=== PATIENT | female | born 1960 | race Caucasian/White ===

== ENCOUNTER 2016-07-19 01:02 | Inpatient (IN) | payer MEDICARE, OTHER ==
[~2016-07-19] VITALS: Ht 167.6 cm; Wt 74.1 kg
[2016-07-19] VITALS (974 sets, daily range): BP systolic 137–183; BP diastolic 74–114; PULSE 64–94; TEMP 97.3–99; O2SAT 78–100
[~2016-07-19 01:02] MED LIST: ACIPHEX; ALLEGRA-D 12 HO1 TER PO; AMLODIPINE5 MG PO; ASPIR-LOW81 MG PO; ASPIRIN 32325 MG/TAB PO; ASPIRIN E.C. 8181 MG PO; ATENOLOL50 MG PO; AZITHROMYCIN250 MG PO; CARDIZEM CD 24240 MG PO; CLARITIN10 MG PO; DILTIAZEM240 M1 PO; DIOVAN; ELITE MAGNESIUM1 TAB PO; FEXOFENADINE180 MG PO; FISH OIL CONC1000 MG PO; FISH OIL1 IU PO; FLONASE NASAL S16 GM NS; FLONASE0.05 MG/AC NS; GLUCOSAMINE; GUAIFEN-PSE 6001 TER PO; HCTZ 25MG25 MG PO; LEVAQUIN 250MG250 MG PO; LIDOCAINE VISC100 M1 TP; LISINOPRIL5 MG PO; LORTAB 5/500 501 TAB; MEDI-FIRST ASP325 MG PO; MOTRIN 600600 MG/TAB PO; MOTRIN800 MG PO; MUCINEX 60600 MG/TA1 PO; MUCINEX 60600 MG/TAB PO; MULTAQ400 MG PO; MULTIPLE VITAMI1 TAB PO; MVI; MVI PO; NORCO 325 MG-51 TAB PO; OMEPRAZOLE DR20 MG PO; PAXIL PO; PHENERGAN 25 TA25 MG PO; PRADAXA 150MG150 MG PO; PREDNISONE20 MG PO; PREMARIN0.3 MG PO; PRILOSEC 20MG20 MG PO; SINGULAIR; TAMBOCOR150 MG PO; TYLENOL 325MG325 MG PO; VICODIN PO; VITAMIN; VITAMIN D1000 IU PO; VOLTAREN 75 DR75 MG PO; XYZAL; ZESTRIL 5MG5 MG PO; ZOFRAN8 MG PO; [UNRECOGNIZED DRUG - OTHER]; glucosamine
[2016-07-19 01:18] LABS: BASO % 0.8 % (0.0-2.0); EOS # 0.2 (0.0-0.7); EOS % 2.9 % (0-4.0); GRAN # 1.8 (1.4-6.5); HEMATOCRIT 37.2 % (37.0-47.0); HEMOGLOBIN 12.8 g/dl (12.5-16.0); LYMPH # 2.6 (1.2-3.4); LYMPH % 49.9 % (20.0-51.0); MEAN CELL VOLUME 97 fl (80.0-100.0); MEAN CORPUSCULAR HEMOGLOBIN 33 pg (27.0-31.0); MEAN CORPUSCULAR HGB CONC 34 g/dl (33.0-37.0); MEAN PLATELET VOLUME 10.2 fl (7.4-10.4); MONO # 0.6 (0.1-0.6); MONO % 10.8 % (1.7-9.3); PLATELET COUNT 165 K/mm3 (130-400); RED BLOOD COUNT 3.83 M/mm3 (4.10-5.30); REDCELL DISTRIBUTION WIDTH-CV 14.3 % (11.5-14.5); WHITE BLOOD COUNT 5.2 K/mm3 (4.8-10.8)
[2016-07-19 01:29] LABS: ADJUSTED CALCIUM 8.7 mg/dL (8.4-10.2); ALANINE AMINOTRANSFERASE 89 U/L (9-52); ALBUMIN 3.7 gm/dL (3.5-5.0); ALKALINE PHOSPHATASE 106 U/L (50-136); ANION GAP 16 mmol/L (7-16); BILIRUBIN,TOTAL 0.5 mg/dL (0.0-1.0); BLOOD UREA NITROGEN 11 mg/dL (7-17); CALCIUM 8.5 mg/dL (8.4-10.2); CARBON DIOXIDE 24 mmol/L (22-30); CHLORIDE 107 mmol/L (98-107); CREATININE, serum 0.56 mg/dL (0.52-1.25); GLUCOSE 87 mg/dL (74-106); POTASSIUM 3.6 mmol/L (3.4-5.0); SODIUM 148 mmol/L (137-145); TOTAL PROTEIN 6.2 gm/dL (6.4-8.2)
[2016-07-19 01:30] LABS: ACETAMINOPHEN < 10 ug/mL (10-30); SALICYLATE < 1.0 mg/dL
[2016-07-19 02:57] LABS: PH 5 (5-8); URINE APPEARANCE Clear; URINE BILIRUBIN Negative (NEGATIVE); URINE BLOOD Negative (NEGATIVE); URINE COLOR Yellow; URINE GLUCOSE Negative (NEGATIVE); URINE KETONE Negative (NEGATIVE); URINE UROBILINOGEN Negative (NEGATIVE)
[2016-07-19 03:01] LABS: URINE RBC None Seen /hpf; URINE WBC None Seen /hpf
[2016-07-19 03:02] LABS: SQUAMOUS EPITHELIAL 0-2 /hpf
[2016-07-19 03:04] LABS: AMPHETAMINE URINE NEGATIVE; BARBITURATES URINE NEGATIVE; BENZODIAZEPINES URINE NEGATIVE; BUPRENORPHINE URINE NEGATIVE; METHADONE URINE NEGATIVE; OPIATES URINE NEGATIVE; OXYCODONE URINE NEGATIVE; PHENCYCLIDINE URINE NEGATIVE; PROPOXYPHENE URINE NEGATIVE; THC CANNABINOIDS URINE NEGATIVE
[2016-07-19] MEDS ORDERED: NORCO 325 MG-51 TAB PO (11:08)
[2016-07-20] VITALS (635 sets, daily range): BP systolic 142–172; BP diastolic 80–101; PULSE 69–101; TEMP 97.2–98.7; O2SAT 83–100
[2016-07-21] VITALS (8 sets, daily range): BP systolic 138–179; BP diastolic 84–102; PULSE 66–89; TEMP 97.7–98.6
[2016-07-21 07:59] LABS: CALCIUM 7.9 mg/dL (8.4-10.2); CREATININE, serum 0.54 mg/dL (0.52-1.25); POTASSIUM 3.2 mmol/L (3.4-5.0)
[2016-07-21 08:18] LABS: MAGNESIUM 0.7 mg/dL (1.6-2.3)
[2016-07-22] VITALS (7 sets, daily range): BP systolic 134–178; BP diastolic 78–100; PULSE 66–95; TEMP 97.3–99.1
[2016-07-22 07:18] LABS: BASO % 0.7 % (0.0-2.0); EOS # 0.2 (0.0-0.7); EOS % 2.7 % (0-4.0); GRAN # 3.1 (1.4-6.5); GRAN % 52.7 % (42.2-75.2); LYMPH # 1.6 (1.2-3.4); LYMPH % 27.5 % (20.0-51.0); MEAN CELL VOLUME 96 fl (80.0-100.0); MEAN CORPUSCULAR HEMOGLOBIN 34 pg (27.0-31.0); MEAN CORPUSCULAR HGB CONC 35 g/dl (33.0-37.0); MEAN PLATELET VOLUME 10.6 fl (7.4-10.4); MONO # 0.9 (0.1-0.6); MONO % 15.7 % (1.7-9.3); PLATELET COUNT 221 K/mm3 (130-400); RED BLOOD COUNT 4.15 M/mm3 (4.10-5.30); REDCELL DISTRIBUTION WIDTH-CV 13.7 % (11.5-14.5); WHITE BLOOD COUNT 5.9 K/mm3 (4.8-10.8)
[2016-07-22 07:24] LABS: CREATININE, serum 0.54 mg/dL (0.52-1.25); MAGNESIUM 1.2 mg/dL (1.6-2.3); POTASSIUM 3.8 mmol/L (3.4-5.0)
[2016-07-22] MEDS ORDERED: MAG-OX 400400 MG/TAB PO (11:35)
[2016-07-22] MEDS ORDERED: PRINIVIL20 MG PO (11:35)
== END 2016-07-22 17:36 | DRG 897 ==
LOC: COL.ER 01:02 → ICU 03:13 → MEDICAL 07-20 16:20
PROVIDERS: Emergency Medicine; Family Medicine; Internal Medicine
DX: F10.229 Alcohol dependence with intoxication, unspecified (principal); F10.24 Alcohol dependence with alcohol-induced mood disorder; S31.115A Laceration without foreign body of abdominal wall, periumbilic region without penetration into peritoneal cavity, initial encounter; X78.1XXA Intentional self-harm by knife, initial encounter; Y90.8 Blood alcohol level of 240 mg/100 ml or more; I10 Essential (primary) hypertension; I48.0 Paroxysmal atrial fibrillation; F17.210 Nicotine dependence, cigarettes, uncomplicated; E87.6 Hypokalemia; E83.42 Hypomagnesemia
CPT/HCPCS: 90791-AI; 99223-AI; 99232-AI; 99233-AI; 99239; C9113; J0360; J1650; J2060; J2405; J2765; J3411; J3475; J7030; J7120

== ENCOUNTER 2017-05-03 10:52 | Inpatient (IN) | payer MEDICARE ==
[~2017-05-03] VITALS: Ht 167.6 cm; Wt 79.4 kg
[~2017-05-03 10:52] MED LIST changes: +MAG-OX 400400 MG/TAB PO; +PRINIVIL20 MG PO
[2017-06-12 07:34] VITALS: BP 111/78; PULSE 86; TEMP 98
[2017-06-12 08:17] LABS: CREATININE, serum 0.79 mg/dL (0.52-1.25); MAGNESIUM 1.5 mg/dL (1.6-2.3); POTASSIUM 4.4 mmol/L (3.4-5.0)
[2017-06-12 08:28] LABS: TRICYCLIC ANTIDEPRESS URINE NEGATIVE
== END 2017-06-12 08:40 | disposition home or self-care (01) | DRG 554 ==
LOC: JCC 06-12 07:13
DX: M17.12 Unilateral primary osteoarthritis, left knee (principal); Z53.09 Procedure and treatment not carried out because of other contraindication; F10.129 Alcohol abuse with intoxication, unspecified; Y90.8 Blood alcohol level of 240 mg/100 ml or more; I10 Essential (primary) hypertension; F17.210 Nicotine dependence, cigarettes, uncomplicated
CPT/HCPCS: J7120

== ENCOUNTER → 2017-06-05 | Outpatient (CLI) | payer MEDICARE, MEDICAID ==
[2017-06-05 11:34] LABS: HIV 1/2 Antibodies Non-Reactive; HIV-1p24 Antigen Non-Reactive
== END ==
LOC: COL.LAB 09:43
PROVIDERS: Orthopaedic Surgery
DX: Z01.812 Encounter for preprocedural laboratory examination (principal); M17.11 Unilateral primary osteoarthritis, right knee

== ENCOUNTER 2018-01-24 13:17 | Emergency (ER) | payer MEDICARE ==
[2018-01-24 13:17] VITALS: TEMP 98.3
[~2018-01-24 13:17] MED LIST changes: +ASPI325T6 PO; +CLARITIN 1010 MG/TAB PO; +COLACE 100100 MG/CAP PO; +DUO-KAPS1 CAP PO; +FLEXERIL5 MG PO; +FOLIC ACID 11 MG/TA1 PO; +KLONOPIN 1MG1 MG PO; +LEXAPRO20 MG PO; +LIORESAL 1010 MG/TAB PO; +MELAT3MGTAB PO; +MOBIC 7.5MG7.5 MG PO; +NAPROSYN 2250 MG/TAB PO; +NATURAL MAGNES200 MG PO; +NORCO 325 MG-7.1 TAB PO; +PEPCID 20MG TAB20 MG PO; +ROXICODONE 55 MG/TAB PO; +TESSALON PERLE200 MG PO; +THIAMINE 1100 MG/TAB PO; +VENTOLIN0.09 MG IH; +ZESTRIL40 MG PO; +ZOLOFT 100MG100 MG PO
[2018-01-24 13:51] LABS: BASO % 0.3 % (0.0-2.0); GRAN # 7.8 (1.4-6.5); GRAN % 83.6 % (42.2-75.2); HEMATOCRIT 37.9 % (37.0-47.0); HEMOGLOBIN 13.7 g/dl (12.5-16.0); LYMPH # 0.9 (1.2-3.4); LYMPH % 9.5 % (20.0-51.0); MEAN CELL VOLUME 91 fl (80.0-100.0); MEAN CORPUSCULAR HEMOGLOBIN 33 pg (27.0-31.0); MEAN CORPUSCULAR HGB CONC 36 g/dl (33.0-37.0); MEAN PLATELET VOLUME 10.9 fl (7.4-10.4); MONO # 0.6 (0.1-0.6); PLATELET COUNT 148 K/mm3 (130-400); RED BLOOD COUNT 4.15 M/mm3 (4.10-5.30); REDCELL DISTRIBUTION WIDTH-CV 12.9 % (11.5-14.5)
[2018-01-24 14:03] LABS: ALANINE AMINOTRANSFERASE 72 U/L (9-52); ALBUMIN 4.2 gm/dL (3.5-5.0); ALKALINE PHOSPHATASE 151 U/L (50-136); ANION GAP 17 mmol/L (7-16); AST,SGOT 142 U/L (15-37); BILIRUBIN,TOTAL 1.8 mg/dL (0.0-1.0); BLOOD UREA NITROGEN 8 mg/dL (7-17); CALCIUM 9.2 mg/dL (8.4-10.2); CARBON DIOXIDE 24 mmol/L (22-30); CHLORIDE 95 mmol/L (98-107); CREATININE, serum 0.65 mg/dL (0.52-1.25); GLUCOSE 112 mg/dL (74-106); POTASSIUM 3.1 mmol/L (3.4-5.0); SODIUM 137 mmol/L (137-145); TOTAL PROTEIN 6.6 gm/dL (6.4-8.2)
[2018-01-24 14:09] LABS: ALCOHOL(ethanol),MEDICAL < 10 mg/dL; MAGNESIUM 0.7 mg/dL (1.6-2.3)
[2018-01-24 16:20] VITALS: BP 143/79; PULSE 90
== END 2018-01-24 16:20 | disposition home or self-care (01) ==
LOC: COL.ER 13:17
PROVIDERS: Nurse Practitioner
DX: F10.239 Alcohol dependence with withdrawal, unspecified (principal); I48.91 Unspecified atrial fibrillation; R56.9 Unspecified convulsions; F17.210 Nicotine dependence, cigarettes, uncomplicated; I10 Essential (primary) hypertension
CPT/HCPCS: J2060; J2405; J3411; J3475; J7030

== ENCOUNTER → 2018-05-28 | Outpatient (CLI) | payer MEDICARE, MEDICAID | LOC: ZCOL.LAB 16:47 | DX: R39.15 Urgency of urination (principal) ==

== ENCOUNTER → 2018-07-29 | Outpatient (CLI) | payer MEDICARE | LOC: COL.RAD 10:35 | DX: K82.8 Other specified diseases of gallbladder (principal); R93.429 Abnormal radiologic findings on diagnostic imaging of unspecified kidney; R91.1 Solitary pulmonary nodule | CPT/HCPCS: Q9967 ==

== ENCOUNTER → 2018-08-18 | Outpatient (CLI) | payer OTHER | LOC: COL.RAD 10:06 | DX: Z02.71 Encounter for disability determination (principal); M48.54XA Collapsed vertebra, not elsewhere classified, thoracic region, initial encounter for fracture; M47.814 Spondylosis without myelopathy or radiculopathy, thoracic region; M47.812 Spondylosis without myelopathy or radiculopathy, cervical region ==

== ENCOUNTER 2018-11-11 20:37 | Emergency (ER) | payer OTHER ==
[~2018-11-11] VITALS: Ht 167.6 cm; Wt 68.2 kg
[2018-11-11 20:39] VITALS: TEMP 98
[2018-11-11 21:18] LABS: ALANINE AMINOTRANSFERASE 27 U/L (9-52); ALBUMIN 4.3 gm/dL (3.5-5.0); ALKALINE PHOSPHATASE 143 U/L (50-136); ANION GAP 19 mmol/L (7-16); AST,SGOT 44 U/L (15-37); BILIRUBIN,TOTAL 0.6 mg/dL (0.0-1.0); BLOOD UREA NITROGEN 12 mg/dL (7-17); CALCIUM 8.5 mg/dL (8.4-10.2); CARBON DIOXIDE 22 mmol/L (22-30); CHLORIDE 104 mmol/L (98-107); CREATININE, serum 0.95 (0.52-1.25); GLUCOSE 86 mg/dL (74-106); LIPASE 102 U/L (23-300); POTASSIUM 3.4 mmol/L (3.4-5.0); SODIUM 144 mmol/L (137-145); TOTAL PROTEIN 6.9 gm/dL (6.4-8.2)
[2018-11-11 21:28] LABS: ALCOHOL(ethanol),MEDICAL 451 mg/dL
[2018-11-11 21:30] LABS: TROPONIN-I < 0.012 ng/mL (0.000-0.035)
[2018-11-11 21:51] LABS: PROTHROMBIN TIME 11.2 SECONDS (9.7-12.8)
[2018-11-11 22:57] LABS: GRAN % 48.4 % (42.2-75.2); HEMATOCRIT 47.5 % (37.0-47.0); HEMOGLOBIN 16.4 g/dl (12.5-16.0); MEAN CELL VOLUME 87 fl (80.0-100.0); MEAN CORPUSCULAR HEMOGLOBIN 30 pg (27.0-31.0); MEAN CORPUSCULAR HGB CONC 35 g/dl (33.0-37.0); MEAN PLATELET VOLUME 10.2 fl (7.4-10.4); PLATELET COUNT 357 K/mm3 (130-400); RED BLOOD COUNT 5.47 M/mm3 (4.10-5.30); REDCELL DISTRIBUTION WIDTH-CV 14.9 % (11.5-14.5)
[2018-11-11 22:58] LABS: BASO # 0.1 (0.0-0.2); BASO % 1.2 % (0.0-2.0); EOS # 0.1 (0.0-0.7); EOS % 0.7 % (0-4.0); LYMPH # 3.5 (1.2-3.4); LYMPH % 41.7 % (20.0-51.0); MONO # 0.7 (0.1-0.6); MONO % 7.9 % (1.7-9.3)
[2018-11-11 23:37] VITALS: BP 102/51; PULSE 119
== END 2018-11-11 23:37 | disposition short-term general hospital (02) ==
LOC: COL.ER 20:37
PROVIDERS: Family Medicine
DX: I48.91 Unspecified atrial fibrillation (principal); F10.129 Alcohol abuse with intoxication, unspecified; I10 Essential (primary) hypertension; K21.9 Gastro-esophageal reflux disease without esophagitis; Z79.82 Long term (current) use of aspirin; Z79.51 Long term (current) use of inhaled steroids
CPT/HCPCS: J2060; J2405; J7030

== ENCOUNTER 2019-01-05 19:57 | Emergency (ER) | payer SELFPAY ==
[~2019-01-05] VITALS: Ht 167.6 cm; Wt 79.5 kg
[2019-01-05 20:03] VITALS: BP 113/95; TEMP 98.2
[2019-01-05 20:41] LABS: BASO # 0.1 (0.0-0.2); BASO % 0.8 % (0.0-2.0); EOS % 0.3 % (0-4.0); GRAN # 8.9 (1.4-6.5); GRAN % 74.8 % (42.2-75.2); HEMATOCRIT 49.4 % (37.0-47.0); HEMOGLOBIN 17.4 g/dl (12.5-16.0); LYMPH # 2.2 (1.2-3.4); LYMPH % 18.7 % (20.0-51.0); MEAN CELL VOLUME 90 fl (80.0-100.0); MEAN CORPUSCULAR HEMOGLOBIN 32 pg (27.0-31.0); MEAN CORPUSCULAR HGB CONC 35 g/dl (33.0-37.0); MEAN PLATELET VOLUME 10.2 fl (7.4-10.4); MONO # 0.6 (0.1-0.6); PLATELET COUNT 251 K/mm3 (130-400); RED BLOOD COUNT 5.48 M/mm3 (4.10-5.30); REDCELL DISTRIBUTION WIDTH-CV 14.2 % (11.5-14.5)
[2019-01-05 21:06] LABS: ALANINE AMINOTRANSFERASE 171 U/L (9-52); ALBUMIN 4.8 gm/dL (3.5-5.0); ALKALINE PHOSPHATASE 135 U/L (50-136); ANION GAP 17 mmol/L (7-16); AST,SGOT 279 U/L (15-37); BILIRUBIN,TOTAL 1.2 mg/dL (0.0-1.0); BLOOD UREA NITROGEN 9 mg/dL (7-17); CALCIUM 9.2 mg/dL (8.4-10.2); CARBON DIOXIDE 27 mmol/L (22-30); CHLORIDE 96 mmol/L (98-107); CREATININE, serum 0.75 (0.52-1.25); GLUCOSE 151 mg/dL (74-106); POTASSIUM 3.6 mmol/L (3.4-5.0); SODIUM 141 mmol/L (137-145); TOTAL PROTEIN 7.7 gm/dL (6.4-8.2)
[2019-01-05 21:32] LABS: C-REACTIVE PROTEIN < 0.5 mg/dL (0.0-0.9)
[2019-01-05 22:14] LABS: COLLECTION METHOD CLEAN CATCH
[2019-01-05 22:20] LABS: MUCOUS Present /lpf; PH 6 (5-8); URINE APPEARANCE Cloudy; URINE BACTERIA None Seen /hpf; URINE BILIRUBIN Negative (NEGATIVE); URINE BLOOD Negative (NEGATIVE); URINE COLOR Yellow; URINE GLUCOSE Negative (NEGATIVE); URINE KETONE 1+ (NEGATIVE); URINE LEUKOCYTE ESTERASE Negative (NEGATIVE); URINE NITRATE Negative (NEGATIVE); URINE PROTEIN(semi-quant) 2+ (NEGATIVE)
[2019-01-05] MEDS ORDERED: PROTONIX 40MG T40 MG PO (22:51)
[2019-01-05] MEDS ORDERED: PHENERGAN 25 TA25 MG PO (22:51)
[2019-01-05 23:01] VITALS: PULSE 55
== END 2019-01-05 23:00 | disposition home or self-care (01) ==
LOC: COL.ER 19:57
PROVIDERS: Nurse Practitioner
DX: K52.9 Noninfective gastroenteritis and colitis, unspecified (principal); I10 Essential (primary) hypertension; F17.210 Nicotine dependence, cigarettes, uncomplicated; Z88.8 Allergy status to other drugs, medicaments and biological substances; Z79.82 Long term (current) use of aspirin; Z79.51 Long term (current) use of inhaled steroids
CPT/HCPCS: J2405; J2550; J7030

== ENCOUNTER 2019-04-26 22:43 | Emergency (ER) | payer MEDICARE ==
[~2019-04-26] VITALS: Ht 167.6 cm; Wt 77.3 kg
[~2019-04-26 22:43] MED LIST changes: +PROTONIX 40MG T40 MG PO
[2019-04-26 23:32] LABS: BASO # 0.1 (0.0-0.2); BASO % 1.2 % (0.0-2.0); EOS # 0.1 (0.0-0.7); EOS % 0.6 % (0-4.0); GRAN # 5.1 (1.4-6.5); GRAN % 65.7 % (42.2-75.2); HEMATOCRIT 45.4 % (37.0-47.0); HEMOGLOBIN 16.2 g/dl (12.5-16.0); LYMPH # 1.7 (1.2-3.4); LYMPH % 21.6 % (20.0-51.0); MEAN CELL VOLUME 92 fl (80.0-100.0); MEAN CORPUSCULAR HEMOGLOBIN 33 pg (27.0-31.0); MEAN CORPUSCULAR HGB CONC 36 g/dl (33.0-37.0); MEAN PLATELET VOLUME 10.4 fl (7.4-10.4); MONO # 0.8 (0.1-0.6); MONO % 10.5 % (1.7-9.3); PLATELET COUNT 221 K/mm3 (130-400); RED BLOOD COUNT 4.93 M/mm3 (4.10-5.30); REDCELL DISTRIBUTION WIDTH-CV 13.7 % (11.5-14.5)
[2019-04-26 23:42] LABS: ALANINE AMINOTRANSFERASE 42 U/L (9-52); ALBUMIN 4.6 gm/dL (3.5-5.0); ALKALINE PHOSPHATASE 118 U/L (50-136); ANION GAP 10 mmol/L (7-16); AST,SGOT 101 U/L (15-37); BILIRUBIN,TOTAL 1.2 mg/dL (0.0-1.0); BLOOD UREA NITROGEN 5 mg/dL (7-17); CALCIUM 8.3 mg/dL (8.4-10.2); CARBON DIOXIDE 30 mmol/L (22-30); CHLORIDE 97 mmol/L (98-107); CREATININE, serum 0.52 (0.52-1.25); GLUCOSE 122 mg/dL (74-106); LIPASE 88 U/L (23-300); SODIUM 138 mmol/L (137-145); TOTAL PROTEIN 7.6 gm/dL (6.4-8.2)
[2019-04-26 23:43] LABS: ALCOHOL(ethanol),MEDICAL < 10 mg/dL
[2019-04-27 02:10] VITALS: BP 145/93; PULSE 88; TEMP 98.4
== END 2019-04-27 02:15 | disposition home or self-care (01) ==
LOC: COL.ER 22:43
PROVIDERS: Emergency Medicine
DX: E87.6 Hypokalemia (principal); E86.9 Volume depletion, unspecified; I48.91 Unspecified atrial fibrillation; I10 Essential (primary) hypertension; F17.200 Nicotine dependence, unspecified, uncomplicated
CPT/HCPCS: J2405; J7030

== ENCOUNTER → 2019-05-04 | Outpatient (CLI) | payer MEDICARE ==
[2019-05-04 14:00] LABS: COLLECTION METHOD CLEAN CATCH
[2019-05-04 14:16] LABS: MUCOUS Present /lpf; PH 5 (5-8); URINE APPEARANCE Hazy; URINE BACTERIA Rare /hpf; URINE BILIRUBIN Negative (NEGATIVE); URINE BLOOD Negative (NEGATIVE); URINE COLOR Yellow; URINE GLUCOSE Negative (NEGATIVE); URINE KETONE Trace (NEGATIVE); URINE LEUKOCYTE ESTERASE Negative (NEGATIVE); URINE NITRATE Negative (NEGATIVE); URINE PROTEIN(semi-quant) 1+ (NEGATIVE); URINE RBC 0-2 /hpf; URINE UROBILINOGEN Negative (NEGATIVE)
[2019-05-04 14:36] LABS: ALBUMIN 4.1 gm/dL (3.5-5.0); BILIRUBIN,TOTAL 0.5 mg/dL (0.0-1.0); CALCIUM 8.8 mg/dL (8.4-10.2); CREATININE, serum 0.68 (0.52-1.25); POTASSIUM 3.5 mmol/L (3.4-5.0); TOTAL PROTEIN 6.9 gm/dL (6.4-8.2)
== END ==
LOC: COL.LAB 13:40
PROVIDERS: Family Medicine
DX: R89.9 Unspecified abnormal finding in specimens from other organs, systems and tissues (principal); I16.0 Hypertensive urgency; R39.15 Urgency of urination

== ENCOUNTER 2019-06-26 17:52 | Emergency (ER) | payer MEDICARE ==
[~2019-06-26] VITALS: Ht 167.6 cm; Wt 75.0 kg
[~2019-06-26 17:52] MED LIST changes: +MULTI VITAMINS1 TAB PO; +TOPROL XL 50MG50 MG PO; +VALIUM 2MG T2 MG/TAB PO; +VITAMIN C500 MG PO
[2019-06-26 18:19] LABS: BASO # 0.1 (0.0-0.2); BASO % 1.7 % (0.0-2.0); EOS # 0.1 (0.0-0.7); EOS % 1.3 % (0-4.0); GRAN # 2.9 (1.4-6.5); GRAN % 38.3 % (42.2-75.2); HEMATOCRIT 42.1 % (37.0-47.0); HEMOGLOBIN 14.5 g/dl (12.5-16.0); LYMPH # 3.6 (1.2-3.4); LYMPH % 47.2 % (20.0-51.0); MEAN CELL VOLUME 97 fl (80.0-100.0); MEAN CORPUSCULAR HEMOGLOBIN 33 pg (27.0-31.0); MEAN CORPUSCULAR HGB CONC 34 g/dl (33.0-37.0); MEAN PLATELET VOLUME 9.7 fl (7.4-10.4); MONO # 0.9 (0.1-0.6); MONO % 11.1 % (1.7-9.3); PLATELET COUNT 333 K/mm3 (130-400); RED BLOOD COUNT 4.35 M/mm3 (4.10-5.30); REDCELL DISTRIBUTION WIDTH-CV 12.7 % (11.5-14.5)
[2019-06-26 18:26] LABS: ALBUMIN 4.6 gm/dL (3.5-5.0); BILIRUBIN,TOTAL 0.5 mg/dL (0.0-1.0); CREATININE, serum 0.73 (0.52-1.25); MAGNESIUM 1.6 mg/dL (1.6-2.3); PHOSPHOROUS 3.9 mg/dL (2.5-4.5); POTASSIUM 3.3 mmol/L (3.4-5.0); TOTAL PROTEIN 7.5 gm/dL (6.4-8.2)
[2019-06-26 19:27] LABS: INR 0.8 (0.8-3.0); PROTHROMBIN TIME 9.7 SECONDS (9.7-12.8)
[2019-06-26 19:30] LABS: PARTIAL THROMBOPLASTIN TIME 32.1 SECONDS (26.0-37.0)
[2019-06-26 20:14] VITALS: BP 121/68; PULSE 92; TEMP 97.9
== END 2019-06-26 20:14 | disposition short-term general hospital (02) ==
LOC: COL.ER 17:52
PROVIDERS: Emergency Medicine
DX: S12.120A Other displaced dens fracture, initial encounter for closed fracture (principal); F10.129 Alcohol abuse with intoxication, unspecified; I10 Essential (primary) hypertension; I48.91 Unspecified atrial fibrillation; Y90.8 Blood alcohol level of 240 mg/100 ml or more; F17.210 Nicotine dependence, cigarettes, uncomplicated; W19.XXXA Unspecified fall, initial encounter
CPT/HCPCS: J3411; J3475; J7030

== ENCOUNTER 2019-07-12 23:12 | Emergency (ER) | payer MEDICARE ==
[~2019-07-12] VITALS: Ht 167.6 cm; Wt 77.3 kg
[2019-07-12 23:17] VITALS: TEMP 98.2
[2019-07-12 23:44] LABS: BASO # 0.1 (0.0-0.2); BASO % 1.6 % (0.0-2.0); EOS % 0.4 % (0-4.0); GRAN # 3.2 (1.4-6.5); GRAN % 58.4 % (42.2-75.2); HEMATOCRIT 37.7 % (37.0-47.0); HEMOGLOBIN 12.9 g/dl (12.5-16.0); LYMPH # 1.8 (1.2-3.4); LYMPH % 33.4 % (20.0-51.0); MEAN CELL VOLUME 98 fl (80.0-100.0); MEAN CORPUSCULAR HEMOGLOBIN 34 pg (27.0-31.0); MEAN CORPUSCULAR HGB CONC 34 g/dl (33.0-37.0); MONO # 0.3 (0.1-0.6); MONO % 5.8 % (1.7-9.3); PLATELET COUNT 219 K/mm3 (130-400); RED BLOOD COUNT 3.84 M/mm3 (4.10-5.30)
[2019-07-12 23:56] LABS: ALANINE AMINOTRANSFERASE 45 U/L (4-34); ALBUMIN 4.4 gm/dL (3.5-5.0); ALCOHOL(ethanol),MEDICAL 257 mg/dL; ALKALINE PHOSPHATASE 152 U/L (50-136); ANION GAP 28 mmol/L (7-16); AST,SGOT 134 U/L (15-37); BLOOD UREA NITROGEN 13 mg/dL (7-17); CALCIUM 8.4 mg/dL (8.4-10.2); CHLORIDE 101 mmol/L (98-107); CREATININE, serum 0.67 (0.52-1.25); GLUCOSE 67 mg/dL (74-106); LIPASE 152 U/L (23-300); POTASSIUM 3.9 mmol/L (3.4-5.0); SODIUM 140 mmol/L (137-145); TOTAL PROTEIN 7.2 gm/dL (6.4-8.2)
[2019-07-12 23:59] LABS: C-REACTIVE PROTEIN < 0.5 mg/dL (0.0-0.9); CARBON DIOXIDE 12 mmol/L (22-30)
[2019-07-13 00:08] LABS: TROPONIN-I < 0.012 ng/mL (0.000-0.035)
[2019-07-13 00:24] LABS: PROTHROMBIN TIME 10.8 SECONDS (9.7-12.8)
[2019-07-13 04:00] VITALS: BP 132/101; PULSE 115
== END 2019-07-13 04:00 | disposition short-term general hospital (02) ==
LOC: COL.ER 23:12
PROVIDERS: Emergency Medicine
DX: S12.110A Anterior displaced Type II dens fracture, initial encounter for closed fracture (principal); I48.91 Unspecified atrial fibrillation; E87.2 Acidosis; J44.9 Chronic obstructive pulmonary disease, unspecified; F10.129 Alcohol abuse with intoxication, unspecified; I10 Essential (primary) hypertension; F17.210 Nicotine dependence, cigarettes, uncomplicated; X58.XXXA Exposure to other specified factors, initial encounter
CPT/HCPCS: C9113; J1170; J2405; J2543; J3010; J3411; J3475; J7030; Q9967

== ENCOUNTER → 2019-08-12 | Outpatient (CLI) | payer MEDICARE | LOC: COL.RAD 08:04 | DX: S12.100K Unspecified displaced fracture of second cervical vertebra, subsequent encounter for fracture with nonunion (principal); M48.02 Spinal stenosis, cervical region; M50.21 Other cervical disc displacement, high cervical region ==

== ENCOUNTER 2019-08-25 06:36 | Inpatient (IN) | payer MEDICARE ==
[2019-08-25] VITALS (35 sets, daily range): BP systolic 105–146; BP diastolic 75–108; PULSE 64–145; TEMP 98–98.3; O2SAT 84–99
[~2019-08-25] VITALS: Ht 170.2 cm; Wt 88.0 kg
[2019-08-25 07:15] LABS: BASO # 0.1 (0.0-0.2); BASO % 0.6 % (0.0-2.0); EOS % 0.1 % (0-4.0); GRAN # 7.4 (1.4-6.5); GRAN % 76.6 % (42.2-75.2); HEMATOCRIT 43.2 % (37.0-47.0); HEMOGLOBIN 14.9 g/dl (12.5-16.0); LYMPH # 1.4 (1.2-3.4); LYMPH % 14.2 % (20.0-51.0); MEAN CELL VOLUME 97 fl (80.0-100.0); MEAN CORPUSCULAR HEMOGLOBIN 34 pg (27.0-31.0); MEAN CORPUSCULAR HGB CONC 35 g/dl (33.0-37.0); MEAN PLATELET VOLUME 10.1 fl (7.4-10.4); MONO # 0.8 (0.1-0.6); MONO % 8.2 % (1.7-9.3); PLATELET COUNT 240 K/mm3 (130-400); RED BLOOD COUNT 4.45 M/mm3 (4.10-5.30); REDCELL DISTRIBUTION WIDTH-CV 13.1 % (11.5-14.5)
[2019-08-25 07:30] LABS: ALANINE AMINOTRANSFERASE 27 U/L (4-34); ALBUMIN 4.6 gm/dL (3.5-5.0); ALKALINE PHOSPHATASE 105 U/L (50-136); ANION GAP 13 mmol/L (7-16); AST,SGOT 48 U/L (15-37); BILIRUBIN,TOTAL 1.2 mg/dL (0.0-1.0); BLOOD UREA NITROGEN 10 mg/dL (7-17); CALCIUM 8.8 mg/dL (8.4-10.2); CARBON DIOXIDE 26 mmol/L (22-30); CHLORIDE 99 mmol/L (98-107); GLUCOSE 224 mg/dL (74-106); LIPASE 119 U/L (23-300); POTASSIUM 4.1 mmol/L (3.4-5.0); SODIUM 138 mmol/L (137-145); TOTAL PROTEIN 7.9 gm/dL (6.4-8.2)
[2019-08-25 07:34] LABS: C-REACTIVE PROTEIN < 0.5 mg/dL (0.0-0.9)
[2019-08-25] MEDS ORDERED: TAMBOCOR150 MG PO (07:50)
[2019-08-25] MEDS ORDERED: DITROPAN 5MG TAB5 MG PO (07:50)
[2019-08-25] MEDS ORDERED: HAIRSKINNAILS PO (07:51)
[2019-08-25 08:25] LABS: PROTHROMBIN TIME 10.9 SECONDS (9.7-12.8)
[2019-08-25 08:27] LABS: TROPONIN-I < 0.012 ng/mL (0.000-0.035)
--- NOTE | 2019-08-25 11:08 | NUR ---
SW met with the patient to discuss discharge plan. The patient lives alone in [place]. Her daughter, Marimar Dmias (ph#[phone]), also lives in [place]. She reports independence with ADLs and has a cane and walker. The patient does not have a PCP at this time. She states that she was seeing Dr. Hali Thrasher, but has not established with a new PCP since Dr. Thrasher left. The patient was not interested in SW getting her set up with a new PCP, but she was interested in getting a list of the different providers in [place]. DAWSON provided her with that list. The patient does not have advanced directives and she was not interested in completing them at this time. She states that she is not and that she has two children: Marimar and Tony. She states [place] The patient plans to return home upon discharge. No additional needs at this time.
--- NOTE | 2019-08-25 19:10 | NUR ---
Bedside report received from COLT Blount
--- NOTE | 2019-08-25 20:00 | NUR ---
Patient resting in bed watching TV. Patient has no complaints of pain, she is just uncomfortable from laying in bed. No complaints of SOA. Assessment complete, see shift assessment for details. She is A+Ox4. Has no current needs at this time. She is able to get herself up to the restroom and is independent in the room. Will continue to monitor. Call light within reach.
[2019-08-26] VITALS: BP 82/54; PULSE 72; TEMP 97.4
[2019-08-26 03:50] VITALS: O2SAT 98
[2019-08-26 04:00] VITALS: BP 149/92; PULSE 54; TEMP 98.3
[2019-08-26 05:39] LABS: BASO % 0.6 % (0.0-2.0); EOS # 0.2 (0.0-0.7); EOS % 3.3 % (0-4.0); GRAN # 2.6 (1.4-6.5); GRAN % 49.4 % (42.2-75.2); HEMATOCRIT 38.9 % (37.0-47.0); HEMOGLOBIN 13.4 g/dl (12.5-16.0); LYMPH # 1.9 (1.2-3.4); LYMPH % 35.8 % (20.0-51.0); MEAN CELL VOLUME 98 fl (80.0-100.0); MEAN CORPUSCULAR HEMOGLOBIN 34 pg (27.0-31.0); MEAN CORPUSCULAR HGB CONC 34 g/dl (33.0-37.0); MEAN PLATELET VOLUME 10.1 fl (7.4-10.4); MONO # 0.6 (0.1-0.6); MONO % 10.7 % (1.7-9.3); PLATELET COUNT 172 K/mm3 (130-400); RED BLOOD COUNT 3.98 M/mm3 (4.10-5.30); REDCELL DISTRIBUTION WIDTH-CV 12.7 % (11.5-14.5)
[2019-08-26 05:53] LABS: CALCIUM 8.4 mg/dL (8.4-10.2); CREATININE, serum 0.65 (0.52-1.25); POTASSIUM 3.4 mmol/L (3.4-5.0)
[2019-08-26 07:46] VITALS: BP 131/92; PULSE 64; TEMP 98.3
[2019-08-26 11:00] VITALS: BP 136/78; PULSE 59; TEMP 98.1
== END 2019-08-26 14:43 | disposition home or self-care (01) | DRG 310 ==
LOC: COL.ER 06:36 → IMCU 07:33
PROVIDERS: Emergency Medicine; ADMIT Student in an Organized Health Care Education/Training Program
DX: I48.91 Unspecified atrial fibrillation (principal); I10 Essential (primary) hypertension; E86.0 Dehydration; K52.9 Noninfective gastroenteritis and colitis, unspecified; M19.90 Unspecified osteoarthritis, unspecified site; G47.33 Obstructive sleep apnea (adult) (pediatric); S12.9XXD Fracture of neck, unspecified, subsequent encounter; Z87.891 Personal history of nicotine dependence
CPT/HCPCS: 99223-AI; 99239; C9113; J2405; J2550; J3475; J7030

== ENCOUNTER 2019-10-09 20:07 | Emergency (ER) | payer MEDICARE ==
[~2019-10-09] VITALS: Ht 167.6 cm; Wt 81.8 kg
[~2019-10-09 20:07] MED LIST changes: +DITROPAN 5MG TAB5 MG PO; +HAIRSKINNAILS PO
[2019-10-09 21:08] LABS: ALANINE AMINOTRANSFERASE 20 U/L (4-34); ALBUMIN 4.3 gm/dL (3.5-5.0); ALKALINE PHOSPHATASE 91 U/L (50-136); ANION GAP 10 mmol/L (7-16); AST,SGOT 31 U/L (15-37); BILIRUBIN,TOTAL 0.3 mg/dL (0.0-1.0); BLOOD UREA NITROGEN 9 mg/dL (7-17); C-REACTIVE PROTEIN 0.9 mg/dL (0.0-0.9); CALCIUM 9.1 mg/dL (8.4-10.2); CARBON DIOXIDE 28 mmol/L (22-30); CHLORIDE 105 mmol/L (98-107); CREATININE, serum 0.66 (0.52-1.25); GLUCOSE 101 mg/dL (74-106); POTASSIUM 3.9 mmol/L (3.4-5.0); SODIUM 144 mmol/L (137-145); TOTAL PROTEIN 7.5 gm/dL (6.4-8.2)
[2019-10-09 21:17] LABS: ALCOHOL(ethanol),MEDICAL 365 mg/dL; TROPONIN-I < 0.012 ng/mL (0.000-0.035)
[2019-10-09 21:20] LABS: BASO # 0.1 (0.0-0.2); BASO % 1.2 % (0.0-2.0); EOS # 0.1 (0.0-0.7); EOS % 1.3 % (0-4.0); GRAN # 3.4 (1.4-6.5); HEMATOCRIT 45.2 % (37.0-47.0); HEMOGLOBIN 15.6 g/dl (12.5-16.0); LYMPH # 3.9 (1.2-3.4); LYMPH % 48.2 % (20.0-51.0); MEAN CELL VOLUME 94 fl (80.0-100.0); MEAN CORPUSCULAR HEMOGLOBIN 32 pg (27.0-31.0); MEAN CORPUSCULAR HGB CONC 35 g/dl (33.0-37.0); MEAN PLATELET VOLUME 10.2 fl (7.4-10.4); MONO # 0.6 (0.1-0.6); MONO % 6.9 % (1.7-9.3); PLATELET COUNT 342 K/mm3 (130-400); RED BLOOD COUNT 4.82 M/mm3 (4.10-5.30); REDCELL DISTRIBUTION WIDTH-CV 11.9 % (11.5-14.5)
[2019-10-09 21:22] LABS: PROLACTIN 19.1 ng/mL (3.0-18.6)
[2019-10-09] MEDS ORDERED: ZITHROMAX Z PA250 MG PO (22:17)
[2019-10-10 03:34] VITALS: BP 138/76; PULSE 70; TEMP 97.8
== END 2019-10-10 03:13 | disposition home or self-care (01) ==
LOC: COL.ER 20:07
PROVIDERS: Family Medicine
DX: R06.02 Shortness of breath (principal); F10.129 Alcohol abuse with intoxication, unspecified; Y90.8 Blood alcohol level of 240 mg/100 ml or more
CPT/HCPCS: J2405; J3411; J7030

== ENCOUNTER → 2019-11-24 | Outpatient (CLI) | payer MEDICARE ==
[~2019-11-24] MED LIST changes: +CARDIZEM CD 12120 MG PO; +CATAPRES-TTS 20.2 M1 TD; +NATURE'S BLEND100 M2 PO; +NITROSTAT0.4 MG/TAB SL; +PROVENTIL0.09 MG/A1 IH; +THERAGRAN TAB1 UDTAB PO; +ZITHROMAX Z PA250 MG PO
[2019-11-24 09:26] LABS: CALCIUM 9.5 mg/dL (8.4-10.2); CREATININE, serum 0.6 (0.52-1.25); MAGNESIUM 1.4 mg/dL (1.6-2.3); POTASSIUM 3.9 mmol/L (3.4-5.0)
== END ==
LOC: COL.LAB 08:26
PROVIDERS: Physician Assistant
DX: E87.6 Hypokalemia (principal)

== ENCOUNTER 2019-12-13 17:57 | Observation (INO) | payer MEDICARE ==
[~2019-12-13] VITALS: Ht 170.2 cm; Wt 86.0 kg
[2019-12-13 18:16] LABS: BASO % 0.7 % (0.0-2.0); EOS # 0.1 (0.0-0.7); EOS % 1.8 % (0-4.0); GRAN # 2.4 (1.4-6.5); GRAN % 42.8 % (42.2-75.2); HEMATOCRIT 37.3 % (37.0-47.0); HEMOGLOBIN 13.1 g/dl (12.5-16.0); LYMPH # 2.4 (1.2-3.4); LYMPH % 43.7 % (20.0-51.0); MEAN CELL VOLUME 93 fl (80.0-100.0); MEAN CORPUSCULAR HEMOGLOBIN 33 pg (27.0-31.0); MEAN CORPUSCULAR HGB CONC 35 g/dl (33.0-37.0); MEAN PLATELET VOLUME 10.4 fl (7.4-10.4); MONO # 0.6 (0.1-0.6); MONO % 10.8 % (1.7-9.3); PLATELET COUNT 187 K/mm3 (130-400); RED BLOOD COUNT 4.03 M/mm3 (4.10-5.30); REDCELL DISTRIBUTION WIDTH-CV 14.5 % (11.5-14.5)
[2019-12-13 18:21] LABS: INR 0.9 (0.8-3.0); PROTHROMBIN TIME 10.3 SECONDS (9.7-12.8)
[2019-12-13 18:30] LABS: ALANINE AMINOTRANSFERASE 50 U/L (4-34); ALBUMIN 4.5 gm/dL (3.5-5.0); ALKALINE PHOSPHATASE 117 U/L (50-136); ANION GAP 14 mmol/L (7-16); AST,SGOT 93 U/L (15-37); BILIRUBIN,TOTAL 0.7 mg/dL (0.0-1.0); BLOOD UREA NITROGEN 12 mg/dL (7-17); C-REACTIVE PROTEIN 0.7 mg/dL (0.0-0.9); CALCIUM 8.7 mg/dL (8.4-10.2); CARBON DIOXIDE 31 mmol/L (22-30); CHLORIDE 92 mmol/L (98-107); CREATINE KINASE 87 U/L (30-135); CREATININE, serum 0.71 (0.52-1.25); GLUCOSE 102 mg/dL (74-106); POTASSIUM 3.5 mmol/L (3.4-5.0); SODIUM 136 mmol/L (137-145); TOTAL PROTEIN 7.3 gm/dL (6.4-8.2)
[2019-12-13 18:41] LABS: TROPONIN-I < 0.012 ng/mL (0.000-0.035)
--- NOTE | 2019-12-13 21:40 | NUR ---
Received patient via stretcher from ED. She is a bit drowsy, oriented and independent. She's on O2 at 2lpm via NC. Upon transferring her from stretcher to bed, she states she needs to go to the restroom. She was able to urinate at about 900ml. She then went back to bed and fell asleep afterwards.
[2019-12-13 21:50] VITALS: BP 124/70; PULSE 66; TEMP 98
--- NOTE | 2019-12-13 22:00 | NUR ---
Marti of RT placed her on CPAP as she was having los SPO2 at ER. Swabbed patient for respiratory virus panel. Pads applied on side rails for seizure precaution. She has C-collar from her previous surgery. Bed alarm on. Call light within reach.
[2019-12-13 22:15] VITALS: BP 124/70; PULSE 66; TEMP 98
[2019-12-13 23:46] VITALS: BP 102/61; PULSE 66; TEMP 98.3
[2019-12-14] VITALS (11 sets, daily range): BP systolic 115–168; BP diastolic 63–96; PULSE 50–108; TEMP 97.2–98.4
--- NOTE | 2019-12-14 04:30 | NUR ---
Patient already awake. Assisted her to go to the bathroom. She then complained of headache with pain score of 10/10. This nurse called Dr. Self and he ordered Oxyxodone 5mg now dose only. She doesn't think she's gonna go back to sleep, shifted her CPAP to O2 at 2lpm via NC.
--- NOTE | 2019-12-14 06:15 | NUR ---
Patient much alert now. She states her headache is now at 8/10. She complains of being naseous. Zofran IV given. Bed alarm on. Call light within reach.
[2019-12-14 07:27] LABS: ALANINE AMINOTRANSFERASE 51 U/L (4-34); ALBUMIN 4.6 gm/dL (3.5-5.0); ALKALINE PHOSPHATASE 120 U/L (50-136); ANION GAP 17 mmol/L (7-16); AST,SGOT 78 U/L (15-37); BILIRUBIN,TOTAL 0.6 mg/dL (0.0-1.0); BLOOD UREA NITROGEN 10 mg/dL (7-17); CALCIUM 8.3 mg/dL (8.4-10.2); CARBON DIOXIDE 24 mmol/L (22-30); CHLORIDE 96 mmol/L (98-107); CREATININE, serum 0.63 (0.52-1.25); GLUCOSE 133 mg/dL (74-106); POTASSIUM 3.6 mmol/L (3.4-5.0); SODIUM 138 mmol/L (137-145); TOTAL PROTEIN 7.4 gm/dL (6.4-8.2)
[2019-12-14 07:39] LABS: TROPONIN-I < 0.012 ng/mL (0.000-0.035)
--- NOTE | 2019-12-14 09:05 | NUR ---
Pt assessment complete. Pt is sitting up in bed wearing her C collar. She is A/o x4. Her breathing is even and unlabored, she reports shallow breaths d/t pain. Reports a headache and chest pain, unchanged from admission. Does have N/V. Reports she threw up her breakfast. Unable to give Zofran at this time. IVF infusing into LAC. Seizure precautions and bed alarm in place. Will continue to monitor.
--- NOTE | 2019-12-14 14:55 | NUR ---
Buckle Frame Shaper met with patient to discuss discharge planning. Patient is a readmit and was admitted at [facility] 11/11/19-11/13/19. Patient lives alone in [place] and states she isn't sure who her primary care physician is. SW advised that per social service notes from last stay, patient was set up with Dr. Back at [facility]. Patient states she isn't sure because she's had so many appointments lately. Patient obtains medications at [facility] with no difficulties. Patient reports no DME at home. Patient states she had [facility] but was discharged. SW reviewed PT/OT recommendation for Home with services. Patient is agreeable to this and would like a referral sent to [facility] again. SW discussed Advance Directives with patient. Patient is not and her two children, Marimar (ph#[phone]) and Tony (ph#[phone]) are her legal next of kin. Patient is interested in designating DPOA and SW assisted her in completing the form. Patient designated her daughter Marimar and her boyfriend, Arnold Orellana (ph#[phone]). Patient verbalized understanding of DPOA-HC then provided her signature. DAWSON and DAWSON Richards provided witness signatures. DAWOSN provided original and copies to patient then placed copy on patient's chart. DAWSON addressed patient's alcohol abuse with patient who reports she has been weaning herself down as it's very difficult to quit cold turkey. Patient states a pint of whiskey has been lasting her about a week when it used to only last a couple days. Patient reports she is trying to quit. DAWSON provided Drug and Alcohol Resource Guide to patient who declined when SW offered to make an appointment for outpatient counseling. Patient states she has done counseling at [facility] before and felt the counseling did not benefit her. Patient might be interested in attending AA meetings, but she reports she cannot leave her 12 year old dog at home alone. Patient states she may go to meetings once it cools off more outside and she can leave her dog in the car. Patient states she has social security disability income and has a Medicaid Application at home that she is working on. DAWSON consulted Teri, Financial Counselor. DAWSON contacted Venita at [facility] who advised they discharged patient on 12/11/19 and would likely accept her again. Venita reports patient would sometimes be intoxicated for visits but never caused any issues. Venita also states patient's relationship with her boyfriend is very on and off. DAWSON faxed referral to Venita. DAWSON also contacted Dr. Back's office and was advised that patient attended her hospital follow up appointment on 11/24/19. Patient's next appointment is scheduled for 02/15/20 as a follow up from a surgery that she is scheduled to have in January at [facility]. DAWSON will continue to follow. DAWSON contacted patient's daughter, Marimar to review discharge plan. Marimar is agreeable to be patient's DPOA-HC but is firm that she is not a resource for patient. Marimar advised that due to patient's addiction, they do not have a connection. DAWSON will continue to follow.
--- NOTE | 2019-12-14 18:26 | NUR ---
Pt's breathing remained stable on RA. Reports pain to head and back, PRN Tylenol administered. Ativan administered intermittently per CIWA protocol. Seizure precautions in place, bed alarm on.
--- NOTE | 2019-12-14 19:30 | NUR ---
Received report from Anita. Seen patient awake, sitting in bed. She's not wearing her oxygen. Informed her that we should put it back and she's okay with it. She's wearing C-collar. With IV on her left AC infusing NS at 75ml/hr. Still with complains of headache, pain score of 8/10. Informed her that Tylenol was just given at around 1700H and she can have another one by 2300H and she said she's fine with it and she can wait. No nausea/vomiting at this time. Bed alarm on. Call light within reach.
[2019-12-15 00:01] VITALS: BP 123/74; PULSE 102; TEMP 98.2
[2019-12-15 01:51] VITALS: BP 142/85; PULSE 81; TEMP 97.8
[2019-12-15 03:50] VITALS: BP 139/85; PULSE 93; TEMP 98.1
[2019-12-15 05:56] VITALS: BP 141/74; PULSE 84; TEMP 98
--- NOTE | 2019-12-15 06:00 | NUR ---
Patient had complains of headache, Tylenol was given. She was not scoring that much on CIWAL. Ativan never given. No nausea or vomiting noted.
[2019-12-15 07:26] VITALS: BP 137/83; PULSE 93; TEMP 98
--- NOTE | 2019-12-15 08:52 | NUR ---
Pt awake and alert upon entry, no C/O pain at this time, shift assessments complete, left Pt call light in reach, bed in lowest position.
[2019-12-15] MEDS ORDERED: MEDROL 4MG DOSPA4 MG PO (08:54)
[2019-12-15] MEDS ORDERED: MONODOX100 PO (08:55)
--- NOTE | 2019-12-15 10:01 | NUR ---
Initial visit; Patient thanked High School Assistant Principal for looking in on her though declined spiritual care at this time.
--- NOTE | 2019-12-15 10:21 | NUR ---
The patient is to tentatively discharge home today, 12/14 with [facility]. PT/OT/Nursing. SW faxed discharge orders.
--- NOTE | 2019-12-15 12:52 | NUR ---
Pt discharged to home, discussed discharge packet with Pt, answered questions. Pt escorted to entrance by PCT, Pt left with friend via private auto.
== END 2019-12-15 12:53 | disposition home or self-care (01) ==
LOC: COL.ER 17:57 → MEDICAL 20:23
PROVIDERS: Emergency Medicine; Physician Assistant
DX: J44.1 Chronic obstructive pulmonary disease with (acute) exacerbation (principal); R09.02 Hypoxemia; R41.82 Altered mental status, unspecified; R94.5 Abnormal results of liver function studies; R07.89 Other chest pain; F10.129 Alcohol abuse with intoxication, unspecified; Y90.8 Blood alcohol level of 240 mg/100 ml or more; I48.91 Unspecified atrial fibrillation; S12.112A Nondisplaced Type II dens fracture, initial encounter for closed fracture; F17.210 Nicotine dependence, cigarettes, uncomplicated; Z79.899 Other long term (current) drug therapy; Z20.828 Contact with and (suspected) exposure to other viral communicable diseases; Z79.82 Long term (current) use of aspirin; I10 Essential (primary) hypertension; G47.33 Obstructive sleep apnea (adult) (pediatric); I48.0 Paroxysmal atrial fibrillation; I47.1 Supraventricular tachycardia; F41.9 Anxiety disorder, unspecified; F32.9 Major depressive disorder, single episode, unspecified; Z90.710 Acquired absence of both cervix and uterus; Z95.818 Presence of other cardiac implants and grafts; Z95.0 Presence of cardiac pacemaker; Z23 Encounter for immunization; Z88.8 Allergy status to other drugs, medicaments and biological substances
CPT/HCPCS: G0008; G0378; J1650; J2060; J2405; J2920; J2930; J7030; J7512

== ENCOUNTER 2020-02-07 06:06 | Emergency (ER) | payer MEDICARE ==
[~2020-02-07] VITALS: Ht 167.6 cm; Wt 77.3 kg
[~2020-02-07 06:06] MED LIST changes: +MEDROL 4MG DOSPA4 MG PO; +MONODOX100 PO
[2020-02-07 06:12] VITALS: TEMP 98
[2020-02-07 06:47] LABS: BASO # 0.2 (0.0-0.2); BASO % 1.4 % (0.0-2.0); EOS % 0.1 % (0-4.0); GRAN % 66.7 % (42.2-75.2); HEMATOCRIT 40.6 % (37.0-47.0); HEMOGLOBIN 13.9 g/dl (12.5-16.0); LYMPH # 2.5 (1.2-3.4); LYMPH % 23.5 % (20.0-51.0); MEAN CELL VOLUME 97 fl (80.0-100.0); MEAN CORPUSCULAR HEMOGLOBIN 33 pg (27.0-31.0); MEAN CORPUSCULAR HGB CONC 34 g/dl (33.0-37.0); MEAN PLATELET VOLUME 9.7 fl (7.4-10.4); MONO # 0.8 (0.1-0.6); MONO % 7.9 % (1.7-9.3); PLATELET COUNT 511 K/mm3 (130-400); RED BLOOD COUNT 4.17 M/mm3 (4.10-5.30); REDCELL DISTRIBUTION WIDTH-CV 13.7 % (11.5-14.5)
[2020-02-07 07:01] LABS: ALBUMIN 4.2 gm/dL (3.5-5.0); BILIRUBIN,TOTAL 0.4 mg/dL (0.0-1.0); C-REACTIVE PROTEIN 1.4 mg/dL (0.0-0.9); CALCIUM 9.1 mg/dL (8.4-10.2); CREATININE, serum 0.72 (0.52-1.25); POTASSIUM 3.5 mmol/L (3.4-5.0); TOTAL PROTEIN 7.3 gm/dL (6.4-8.2)
[2020-02-07 07:36] VITALS: BP 140/85; PULSE 86
== END 2020-02-07 07:49 | disposition home or self-care (01) ==
LOC: COL.ER 06:06
PROVIDERS: Emergency Medicine
DX: M54.2 Cervicalgia (principal); R11.2 Nausea with vomiting, unspecified; F17.200 Nicotine dependence, unspecified, uncomplicated; I48.0 Paroxysmal atrial fibrillation; I10 Essential (primary) hypertension; J44.9 Chronic obstructive pulmonary disease, unspecified; Z90.710 Acquired absence of both cervix and uterus; Z88.6 Allergy status to analgesic agent; Z91.048 Other nonmedicinal substance allergy status; Z79.82 Long term (current) use of aspirin
CPT/HCPCS: J2405; J3010; J7030

== ENCOUNTER → 2020-03-09 | Outpatient (REF) ==
[~2020-03-09] MED LIST changes: +COZAAR 50MG50 MG/TAB PO; +LOPRESSOR 225 MG/TAB PO; +REGLAN 10MG10 MG/TAB PO; +ZOFRAN 4MG T4 MG/TAB PO
== END ==
LOC: ZLAB.WCH 19:15
DX: Z01.89 Encounter for other specified special examinations (principal)

== ENCOUNTER → 2020-04-26 | Outpatient (CLI) | payer MEDICARE, MEDICAID, OTHER ==
[~2020-04-26] MED LIST changes: +AMOXICILLIN 8751 TAB PO; +K-DUR20 MEQ PO; +MAG-G500 MG PO; +NICODERM C21 MG/PATC TD; +ONE-A-DAY ESSE1 EACH PO; +OS-CAL 500 + D1 TAB PO; +TIAZAC240 MG PO; +VITAMIN D31000 IU PO
== END ==
LOC: MC.RAD 07:51
DX: N63.20 Unspecified lump in the left breast, unspecified quadrant (principal)

== ENCOUNTER 2020-05-14 04:38 | Emergency (ER) | payer MEDICARE ==
[~2020-05-14] VITALS: Ht 167.6 cm; Wt 79.5 kg
[~2020-05-14 04:38] MED LIST changes: -AMOXICILLIN 8751 TAB PO; -K-DUR20 MEQ PO; -ONE-A-DAY ESSE1 EACH PO; -TIAZAC240 MG PO; -VITAMIN D31000 IU PO
[2020-05-14 04:41] VITALS: TEMP 97.7
[2020-05-14] MEDS ORDERED: AMOXICILLIN 8751 TAB PO (05:08)
[2020-05-14 05:15] VITALS: BP 114/70; PULSE 68
[2020-08-11] MEDS ORDERED: ONE-A-DAY ESSE1 EACH PO (02:36)
[2020-08-11] MEDS ORDERED: DUO-KAPS1 CAP PO (02:37)
[2020-08-12] MEDS ORDERED: MAG-OX 400400 MG/TAB PO (10:38)
[2020-08-12] MEDS ORDERED: FOLIC ACID 11 MG/TA1 PO (10:38)
[2020-08-12] MEDS ORDERED: THIAMINE 1100 MG/TAB PO (10:38)
[2020-08-12] MEDS ORDERED: VITAMIN D31000 IU PO (10:39)
[2020-08-12] MEDS ORDERED: AMOXICILLIN 8751 TAB PO (10:41)
== END 2020-05-14 05:15 | disposition home or self-care (01) ==
LOC: COL.ER 04:38
DX: L02.11 Cutaneous abscess of neck (principal); F17.210 Nicotine dependence, cigarettes, uncomplicated; Z88.1 Allergy status to other antibiotic agents; Z79.82 Long term (current) use of aspirin

== ENCOUNTER 2020-05-19 07:05 | Day surgery (SDC) | payer MEDICARE, OTHER ==
[~2020-05-19] VITALS: Ht 167.6 cm; Wt 78.1 kg
[~2020-05-19 07:05] MED LIST changes: +AMOXICILLIN 8751 TAB PO
[2020-05-19 08:35] VITALS: BP 146/94; PULSE 69; TEMP 98.4
[2020-05-19] MEDS ORDERED: LOPRESSOR 225 MG/TAB PO (09:12)
[2020-05-19] MEDS ORDERED: TIAZAC240 MG PO (09:14)
--- NOTE | 2020-05-19 10:32 | NUR ---
Has been resting and watching TV when checked on hourly. Returns to radiology per wheelchair accompanied by radiology staff.
--- NOTE | 2020-05-19 11:06 | NUR ---
Returns to room from radiology and taken per cart to PACU for block placement prior to OR by Jeny GREGORY.
[2020-05-19 13:11] VITALS: TEMP 98.8
[2020-05-19 13:25] VITALS: BP 156/80; PULSE 62
--- NOTE | 2020-05-19 13:25 | NUR ---
Patient returns to room 7 per cart from PACU accompanied by Lisa GREGORY and is awake and alert. Exofin dressing covering incisions x2 on left upper breast and left axilla. IV fluids infusing and site is free of redness. Siderails up x2 and call light in reach. Temp 97.8 and room air sats 97%.
[2020-05-19 13:40] VITALS: BP 155/79; PULSE 59
--- NOTE | 2020-05-19 13:40 | NUR ---
Drinking water and denies pain or nausea.
[2020-05-19 13:55] VITALS: BP 168/92; PULSE 60
--- NOTE | 2020-05-19 13:55 | NUR ---
Eating muffin and drinking coffee.
[2020-05-19 14:10] VITALS: BP 157/90; PULSE 56
--- NOTE | 2020-05-19 14:10 | NUR ---
Continues to deny pain or nausea. Tolerates snack and fluids.
--- NOTE | 2020-05-19 14:25 | NUR ---
Assisted up to the bathroom and gait is steady. Voids and returns to room. IV discontinued and site is free of redness.
--- NOTE | 2020-05-19 14:30 | NUR ---
Patient dresses self. Gait steady and denies pain or nausea.
--- NOTE | 2020-05-19 14:41 | NUR ---
Dismissal instructions given and voices understanding of home cares and follow up appointment date and time. Instructed on taking Motrin and tylenol for pain.
--- NOTE | 2020-05-19 14:44 | NUR ---
Patient dismissed to home driven by friend and taken to the front door per wheelchair and assisted into vehicle by this RN with instructions in hand.
[2020-08-11] MEDS ORDERED: ONE-A-DAY ESSE1 EACH PO (02:36)
[2020-08-11] MEDS ORDERED: DUO-KAPS1 CAP PO (02:37)
[2020-08-12] MEDS ORDERED: FOLIC ACID 11 MG/TA1 PO (10:38)
[2020-08-12] MEDS ORDERED: MAG-OX 400400 MG/TAB PO (10:38)
[2020-08-12] MEDS ORDERED: THIAMINE 1100 MG/TAB PO (10:38)
[2020-08-12] MEDS ORDERED: VITAMIN D31000 IU PO (10:39)
[2020-08-12] MEDS ORDERED: AMOXICILLIN 8751 TAB PO (10:41)
== END 2020-05-19 14:44 | disposition home or self-care (01) ==
LOC: SDCO 07:05
DX: C50.212 Malignant neoplasm of upper-inner quadrant of left female breast (principal); J44.9 Chronic obstructive pulmonary disease, unspecified; M19.90 Unspecified osteoarthritis, unspecified site; I10 Essential (primary) hypertension; I48.91 Unspecified atrial fibrillation; G47.33 Obstructive sleep apnea (adult) (pediatric); F41.9 Anxiety disorder, unspecified; Z95.818 Presence of other cardiac implants and grafts; Z90.710 Acquired absence of both cervix and uterus; Z79.891 Long term (current) use of opiate analgesic; Z86.73 Personal history of transient ischemic attack (TIA), and cerebral infarction without residual deficits; Z79.899 Other long term (current) drug therapy; Z88.2 Allergy status to sulfonamides; Z88.1 Allergy status to other antibiotic agents; Z88.8 Allergy status to other drugs, medicaments and biological substances; Z20.822 Contact with and (suspected) exposure to COVID-19; Z79.82 Long term (current) use of aspirin; Z85.828 Personal history of other malignant neoplasm of skin
CPT/HCPCS: A9541; J1100; J1885; J2250; J2405; J2704; J3010; J7120

== ENCOUNTER → 2020-09-09 | Outpatient (CLI) | payer MEDICARE, MEDICAID, OTHER ==
[~2020-09-09] MED LIST changes: +K-DUR20 MEQ PO; +ONE-A-DAY ESSE1 EACH PO; +TIAZAC240 MG PO; +VITAMIN D31000 IU PO
== END ==
LOC: COL.VAS 14:21
DX: Z51.11 Encounter for antineoplastic chemotherapy (principal); C50.212 Malignant neoplasm of upper-inner quadrant of left female breast

== ENCOUNTER 2020-10-04 11:21 | Outpatient (CLI) | payer MEDICARE, MEDICAID, OTHER ==
[~2020-10-04 11:21] MED LIST changes: -K-DUR20 MEQ PO
[2020-10-04 13:15] VITALS: BP 91/61; PULSE 63
[2020-10-04 14:00] VITALS: BP 102/57; PULSE 60
[2020-10-04 15:00] VITALS: BP 110/59; PULSE 65
[2020-10-04 16:00] VITALS: BP 102/55; PULSE 60
--- NOTE | 2020-10-04 16:49 | NUR ---
Pt escorted out via wheelchair by Thor Marcum.
== END 2020-10-04 16:50 | disposition home or self-care (01) ==
LOC: EUO 11:21
DX: C50.212 Malignant neoplasm of upper-inner quadrant of left female breast (principal); K52.1 Toxic gastroenteritis and colitis
CPT/HCPCS: J1644; J3475; J3480

== ENCOUNTER 2020-10-15 09:02 | Emergency (ER) | payer MEDICARE, MEDICAID ==
[~2020-10-15] VITALS: Ht 167.6 cm; Wt 79.5 kg
[2020-10-15 09:52] LABS: BASO # 0.1 (0.0-0.2); BASO % 0.3 % (0.0-2.0); GRAN # 13.8 (1.4-6.5); GRAN % 83.3 % (42.2-75.2); LYMPH # 1.2 (1.2-3.4); LYMPH % 7.2 % (20.0-51.0); MEAN CELL VOLUME 106 fl (80.0-100.0); MEAN CORPUSCULAR HGB CONC 34 g/dl (33.0-37.0); MEAN PLATELET VOLUME 10.6 fl (7.4-10.4); MONO # 1.3 (0.1-0.6); MONO % 7.9 % (1.7-9.3); PLATELET COUNT 84 K/mm3 (130-400); RED BLOOD COUNT 2.53 M/mm3 (4.10-5.30); REDCELL DISTRIBUTION WIDTH-CV 17.7 % (11.5-14.5)
[2020-10-15 09:53] LABS: HEMATOCRIT 26.8 % (37.0-47.0); HEMOGLOBIN 9.2 g/dl (12.5-16.0); MEAN CORPUSCULAR HEMOGLOBIN 36 pg (27.0-31.0)
[2020-10-15 10:09] LABS: ALANINE AMINOTRANSFERASE 33 U/L (4-34); ALBUMIN 3.5 gm/dL (3.5-5.0); ALKALINE PHOSPHATASE 152 U/L (50-136); ANION GAP 15 mmol/L (7-16); AST,SGOT 58 U/L (15-37); BILIRUBIN,TOTAL 0.5 mg/dL (0.0-1.0); BLOOD UREA NITROGEN 10 mg/dL (7-17); CALCIUM 7.6 mg/dL (8.4-10.2); CARBON DIOXIDE 23 mmol/L (22-30); CHLORIDE 93 mmol/L (98-107); CREATININE, serum 0.67 (0.52-1.25); GLUCOSE 104 mg/dL (74-106); POTASSIUM 3.2 mmol/L (3.4-5.0); SODIUM 131 mmol/L (137-145); TOTAL PROTEIN 5.6 gm/dL (6.4-8.2)
[2020-10-15 10:13] LABS: MAGNESIUM 0.8 mg/dL (1.6-2.3)
[2020-10-15 10:43] LABS: INR 1.1 (0.8-3.0); PROTHROMBIN TIME 12.5 SECONDS (9.7-12.8)
[2020-10-15 10:59] LABS: TROPONIN-I < 0.012 ng/mL (0.000-0.035)
[2020-10-15] MEDS ORDERED: PHENERGAN 25 TA25 MG PO (12:21)
[2020-10-15 15:00] VITALS: BP 133/84; PULSE 84; TEMP 98
== END 2020-10-15 15:00 | disposition home or self-care (01) ==
LOC: COL.ER 09:02
PROVIDERS: Student in an Organized Health Care Education/Training Program
DX: E87.6 Hypokalemia (principal); R11.2 Nausea with vomiting, unspecified; C50.912 Malignant neoplasm of unspecified site of left female breast; J44.9 Chronic obstructive pulmonary disease, unspecified; E83.42 Hypomagnesemia; Z20.822 Contact with and (suspected) exposure to COVID-19; Z79.899 Other long term (current) drug therapy
CPT/HCPCS: J1644; J2405; J2765; J3010; J3475; J3480; J7030; Q9967

== ENCOUNTER 2020-11-29 06:23 | Day surgery (SDC) | payer MEDICARE, MEDICAID ==
[~2020-11-29] VITALS: Ht 167.6 cm; Wt 78.8 kg
[2020-11-29 07:04] VITALS: BP 120/87; PULSE 73; TEMP 97.5
[2020-11-29] MEDS ORDERED: MAG-OX 400400 MG/TAB PO (07:11)
[2020-11-29] MEDS ORDERED: COZAAR 50MG50 MG/TAB PO (07:11)
[2020-11-29] MEDS ORDERED: PRILOSEC 20MG20 MG PO ×2 (07:12→08:10)
[2020-11-29] MEDS ORDERED: DITROPAN 5MG TAB5 MG PO (07:12)
--- NOTE | 2020-11-29 07:15 | NUR ---
PATIENT AMBULATED INTO ENDO UNIT WITH STEADY GAIT. ACCOMPANIES. PATIENT IS ALERT AND ORIENTED X 3. PATIENT STATES SHE HAS FALLEN RECENTLY DUE TO LIGHTHEADEDNESS/DIZZINESS. DOES NOT USE WALKER. CONSENT EXPLAINED AND PATIENT SIGNED. ASSESSMENT COMPLETED. LUNGS CTA. HEART SOUNDS S1,S2 AND REGULAR. BOWEL SOUNDS HEARD. PEDAL PULSES +1. SLIGHT SWELLING NOTED TO LOWER LEGS, NO PITTING.
[2020-11-29 08:15] VITALS: BP 128/69; PULSE 72; TEMP 97.6
--- NOTE | 2020-11-29 08:15 | NUR ---
PATIENT BROUGHT BACK TO ENDO ROOM 1 VIA CART. AMBULATED TO CHAIR WITHOUT DIFFICULTY. PATIENT IS ALERT AND ORIENTED. DENIES PAIN OR NAUSEA. WILL PICK PATIENT UP IN ONE HOUR. REPORT REICEVED FROM HERMANN GREGORY, ALL QUESTIONS ANSWERED. VITAL SIGNS STABLE. WARM BLANKET PROVIDED, PATIENT REQUESTS SPRITE AND CRACKERS. WILL CONTINUE TO MONITOR.
[2020-11-29 08:30] VITALS: BP 141/87; PULSE 69
--- NOTE | 2020-11-29 08:30 | NUR ---
PATIENT TOLERATING FOOD AND DRINK WITHOUT DIFFICULTY. VITAL SIGNS STABLE. WILL MONITOR.
[2020-11-29 08:45] VITALS: BP 149/86; PULSE 71
--- NOTE | 2020-11-29 08:45 | NUR ---
PATIENT STATES SHE IS FEELING WELL. FOLLOW UP SCHEDULED FOR DR. LORA PER DISCHARGE INSTRUCTIONS. AWAITING ARRIVAL.
[2020-11-29 09:00] VITALS: BP 141/80; PULSE 69
--- NOTE | 2020-11-29 09:00 | NUR ---
PATIENT STATES SHE IS FEELING WELL AND READY TO GO HOME. VITAL SIGNS STABLE. IV REMOVED, INTACT. PATIENT TO GET DRESSED AT THIS TIME.
--- NOTE | 2020-11-29 09:20 | NUR ---
DISCHARGE INSTRUCTIONS REVIEWED WITH PATIENT ALL QUESTIONS ANSWERED. PATIENT BROUGHT DOWN TO LOBBY VIA WHEEL CHAIR. AT FRONT DOOR TO DRIVE PATIENT HOME. ALL BELONGINGS IN HAND.
== END 2020-11-29 09:20 | disposition home or self-care (01) ==
LOC: SDCO 06:23
DX: Z12.11 Encounter for screening for malignant neoplasm of colon (principal); K21.00 Gastro-esophageal reflux disease with esophagitis, without bleeding; K44.9 Diaphragmatic hernia without obstruction or gangrene; I10 Essential (primary) hypertension; I48.91 Unspecified atrial fibrillation; I25.10 Atherosclerotic heart disease of native coronary artery without angina pectoris; G47.30 Sleep apnea, unspecified; D12.2 Benign neoplasm of ascending colon; D12.5 Benign neoplasm of sigmoid colon; K22.10 Ulcer of esophagus without bleeding; J44.9 Chronic obstructive pulmonary disease, unspecified; G47.33 Obstructive sleep apnea (adult) (pediatric); M19.90 Unspecified osteoarthritis, unspecified site; F32.9 Major depressive disorder, single episode, unspecified; F10.10 Alcohol abuse, uncomplicated; F17.210 Nicotine dependence, cigarettes, uncomplicated; Z90.710 Acquired absence of both cervix and uterus; Z20.822 Contact with and (suspected) exposure to COVID-19; Z79.899 Other long term (current) drug therapy; Z79.82 Long term (current) use of aspirin; Z79.891 Long term (current) use of opiate analgesic; Z85.3 Personal history of malignant neoplasm of breast; Z86.73 Personal history of transient ischemic attack (TIA), and cerebral infarction without residual deficits
CPT/HCPCS: J7120

== ENCOUNTER 2021-01-19 18:30 | Observation (INO) | payer MEDICARE ==
[~2021-01-19] VITALS: Ht 167.6 cm; Wt 78.7 kg
[2021-01-19 19:14] LABS: BASO # 0.1 K/mm3 (0.0-0.2); BASO % 0.6 % (0.0-2.0); EOS # 0.2 K/mm3 (0.0-0.7); EOS % 1.5 % (0-4.0); GRAN # 9.9 K/mm3 (1.4-6.5); GRAN % 78.3 % (42.2-75.2); HEMATOCRIT 43.3 % (37.0-47.0); HEMOGLOBIN 15.1 g/dl (12.5-16.0); LYMPH % 7.8 % (20.0-51.0); MEAN CELL VOLUME 94 fl (80.0-100.0); MEAN CORPUSCULAR HEMOGLOBIN 33 pg (27.0-31.0); MEAN CORPUSCULAR HGB CONC 35 g/dl (33.0-37.0); MEAN PLATELET VOLUME 10.7 fl (7.4-10.4); MONO # 1.4 K/mm3 (0.1-0.6); MONO % 11.4 % (1.7-9.3); PLATELET COUNT 229 K/mm3 (130-400); RED BLOOD COUNT 4.63 M/mm3 (4.10-5.30); REDCELL DISTRIBUTION WIDTH-CV 12.7 % (11.5-14.5)
[2021-01-19 20:02] LABS: ALANINE AMINOTRANSFERASE 25 U/L (0-55); ALKALINE PHOSPHATASE 252 U/L (40-150); ANION GAP 20 mmol/L (7-16); AST,SGOT 33 U/L (5-34); BILIRUBIN,TOTAL 1.3 mg/dL (0.2-1.2); BLOOD UREA NITROGEN 11 mg/dL (10-20); CALCIUM 9.9 mg/dL (8.4-10.2); CARBON DIOXIDE 24 mmol/L (23-31); CHLORIDE 98 mmol/L (98-107); CREATININE, serum 1.23 mg/dL (0.57-1.11); GLUCOSE 123 mg/dL (70-99); LIPASE 33 U/L (8-78); POTASSIUM 3.8 mmol/L (3.5-4.5); SODIUM 141 mmol/L (136-145); TOTAL PROTEIN 7.4 gm/dL (6.2-8.1)
[2021-01-19 20:10] LABS: TROPONIN-I < 0.010 ng/mL (0.00-0.033)
[2021-01-19] MEDS ORDERED: TOPROL XL 50MG50 MG PO (23:08)
[2021-01-19] MEDS ORDERED: K-DUR20 MEQ PO (23:09)
[2021-01-19] MEDS ORDERED: ZOFRAN8 MG PO (23:10)
[2021-01-20 00:52] LABS: PROTHROMBIN TIME 11.4 SECONDS (9.7-12.8)
[2021-01-20 00:54] LABS: PARTIAL THROMBOPLASTIN TIME 28.8 SECONDS (26.0-37.0)
[2021-01-20 03:35] LABS: BASO # 0.1 K/mm3 (0.0-0.2); BASO % 0.6 % (0.0-2.0); EOS % 0.4 % (0-4.0); GRAN # 5.5 K/mm3 (1.4-6.5); GRAN % 70.1 % (42.2-75.2); HEMATOCRIT 38.1 % (37.0-47.0); HEMOGLOBIN 13.4 g/dl (12.5-16.0); LYMPH # 1.2 K/mm3 (1.2-3.4); LYMPH % 15.6 % (20.0-51.0); MEAN CELL VOLUME 93 fl (80.0-100.0); MEAN CORPUSCULAR HEMOGLOBIN 33 pg (27.0-31.0); MEAN CORPUSCULAR HGB CONC 35 g/dl (33.0-37.0); MEAN PLATELET VOLUME 10.1 fl (7.4-10.4); MONO % 12.8 % (1.7-9.3); PLATELET COUNT 178 K/mm3 (130-400); RED BLOOD COUNT 4.09 M/mm3 (4.10-5.30); REDCELL DISTRIBUTION WIDTH-CV 12.5 % (11.5-14.5)
[2021-01-20 03:54] LABS: CALCIUM 8.7 mg/dL (8.4-10.2); CREATININE, serum 0.86 mg/dL (0.57-1.11); POTASSIUM 3.4 mmol/L (3.5-4.5)
--- NOTE | 2021-01-20 15:00 | NUR ---
Admission assessment completed, alert/oriented, vital signs stable, denies pain or discomfort, nausea/ vomitting is resolved and patient is now takin PO inake without issues, Mg and K being replaced by IV, IVF also infusing, heart RRR/ SR on tele, converted from A.fib on IV meds and now changed to PO antiarrythmics, denies any resp.difficulty noted and lungs CTA, she denies other needs at this time
[2021-01-20 18:11] VITALS: BP 131/80; PULSE 82; TEMP 97.8
[2021-01-20 19:06] VITALS: BP 140/82; PULSE 80; TEMP 98.2
[2021-01-20 21:32] LABS: CALCIUM 8.2 mg/dL (8.4-10.2); CREATININE, serum 0.89 mg/dL (0.57-1.11); MAGNESIUM 2.5 mg/dL (1.6-2.6); POTASSIUM 3.6 mmol/L (3.5-4.5)
--- NOTE | 2021-01-20 21:55 | NUR ---
Patient assessed around 1944. Complained of level 7 pain to neck/back, chronic. Requested Flexeril, but not on MAR. Requested order from BOB Marcum. Denies having SOB and dyspnea. Peripheral IV to right forearm with fluids running per orders, and INT to left AC. HRR. Telemetry in place. Patient denies having any nausea or upset stomach at this time. Potassium around 2100 was 3.6. Order placed to replace per protocol. Patient voices no questions, needs, or concerns at this time. In bed with call light within reach.
[2021-01-20 23:22] VITALS: BP 157/96; PULSE 72; TEMP 97.9
[2021-01-20 23:54] VITALS: BP 150/81; PULSE 79; TEMP 98
[2021-01-21 01:32] LABS: COLLECTION METHOD CLEAN CATCH
[2021-01-21 01:37] LABS: PH 7 (5-8); SQUAMOUS EPITHELIAL None Seen /hpf (0-10); URINE APPEARANCE Clear (CLEAR/HAZY); URINE BACTERIA None Seen (NONE SEEN); URINE BILIRUBIN Negative (NEGATIVE); URINE BLOOD Negative (NEGATIVE); URINE COLOR Straw (YELLOW); URINE GLUCOSE Negative (NEGATIVE); URINE KETONE Negative (NEGATIVE); URINE LEUKOCYTE ESTERASE 2+ (NEGATIVE); URINE NITRATE Negative (NEGATIVE); URINE PROTEIN(semi-quant) Negative (NEGATIVE); URINE RBC 0-2 /hpf (0-2); URINE UROBILINOGEN Negative (NEGATIVE)
[2021-01-21 04:22] VITALS: BP 153/82; PULSE 97; TEMP 97.3
--- NOTE | 2021-01-21 05:46 | NUR ---
Patient has denied having pain and discomfort this shift. Potassium replaced per protocol. Denies having any questions, needs, or concerns at this time. In bed with call light within reach.
--- NOTE | 2021-01-21 05:49 | NUR ---
Patient's BS showed up as 37, immediately rechecked with PCT, result 101.
[2021-01-21 08:05] VITALS: BP 167/95; PULSE 77; TEMP 98.4
[2021-01-21 08:38] LABS: BASO % 0.6 % (0.0-2.0); EOS # 0.2 K/mm3 (0.0-0.7); EOS % 3.3 % (0-4.0); GRAN # 4.9 K/mm3 (1.4-6.5); GRAN % 67.7 % (42.2-75.2); HEMATOCRIT 38.2 % (37.0-47.0); HEMOGLOBIN 13.3 g/dl (12.5-16.0); LYMPH # 1.2 K/mm3 (1.2-3.4); LYMPH % 17.1 % (20.0-51.0); MEAN CELL VOLUME 94 fl (80.0-100.0); MEAN CORPUSCULAR HEMOGLOBIN 33 pg (27.0-31.0); MEAN CORPUSCULAR HGB CONC 35 g/dl (33.0-37.0); MEAN PLATELET VOLUME 9.9 fl (7.4-10.4); MONO # 0.8 K/mm3 (0.1-0.6); PLATELET COUNT 175 K/mm3 (130-400); RED BLOOD COUNT 4.07 M/mm3 (4.10-5.30); REDCELL DISTRIBUTION WIDTH-CV 12.5 % (11.5-14.5)
[2021-01-21 08:48] LABS: CALCIUM 8.7 mg/dL (8.4-10.2); CREATININE, serum 0.84 mg/dL (0.57-1.11); MAGNESIUM 1.8 mg/dL (1.6-2.6); POTASSIUM 3.9 mmol/L (3.5-4.5)
--- NOTE | 2021-01-21 09:55 | NUR ---
PT REFUSING SCDS AT THIS TIME.
--- NOTE | 2021-01-21 10:48 | NUR ---
PT DISCHARGING. PT IV DISCONTINUED, PT EDUCATION AND HEALTH SUMMARY GIVEN BY TIRSO, CHARGE NURSE. PT WHEELED OUT BY [facility] EMPL[employer]EE.
--- NOTE | 2021-01-21 10:49 | NUR ---
Plan is to return home independently. SW met with patient about care. Tara reports that she resides in [facility]. Patient reports that her PCP is Dr. Back and Dr. Ivan. Patient shares that she is in outpatient PT at [facility] and goes twice a week. Patient shares taht she prefers [facility] for medications and has a pacemaker and monitor. Patient shares that she has a cane and walker but uses the cane the most. Kimberley shares that she has a BF Arnold Orellana who supports her care and is an emergency contact [phone]. Denies the needs for any home health care. Educated on services with case management. Patient selected a DPOA and filled out PPW. Nurse and SW witnessed and placed copy on chart, gave copy to client. NF>
--- NOTE | 2021-01-21 10:50 | NUR ---
PT ALERT AND ORIENTED. NEURO CHECKS PERFORMED, NO SIGNIFICANT CHANGES NOTED IN PT. PT HAS HEADACHE, RATED 3 NOW AFTER MEDICATIONS. PT LUNGS CLEAR TO AUSCULTATION. PT S1,S2 HEARD. PT HAS ACTIVE BOWEL SOUNDS, SOFT, NON-TENDER. PT NOTED BRITTLE NAILS FROM CHEMO.
== END 2021-01-21 10:53 | disposition home or self-care (01) ==
LOC: COL.ER 18:30 → MEDICAL 01-20 11:00
PROVIDERS: Emergency Medicine; Nurse Practitioner Family; Physician Assistant; ADMIT Student in an Organized Health Care Education/Training Program
DX: I48.91 Unspecified atrial fibrillation (principal); I47.1 Supraventricular tachycardia; D72.829 Elevated white blood cell count, unspecified; R11.2 Nausea with vomiting, unspecified; E87.8 Other disorders of electrolyte and fluid balance, not elsewhere classified; K21.9 Gastro-esophageal reflux disease without esophagitis; N17.9 Acute kidney failure, unspecified; I10 Essential (primary) hypertension; J44.9 Chronic obstructive pulmonary disease, unspecified; R51.9 Headache, unspecified; E87.6 Hypokalemia; I67.1 Cerebral aneurysm, nonruptured; E55.9 Vitamin D deficiency, unspecified; F17.210 Nicotine dependence, cigarettes, uncomplicated; Z85.3 Personal history of malignant neoplasm of breast; Z92.3 Personal history of irradiation; Z92.21 Personal history of antineoplastic chemotherapy; Z95.0 Presence of cardiac pacemaker; Z79.899 Other long term (current) drug therapy; Z23 Encounter for immunization
CPT/HCPCS: 99223-AI; 99233-AI; G0378; J0282; J2270; J2405; J2550; J3475; J3480; J7030; J7060

== ENCOUNTER → 2021-02-14 | Outpatient (CLI) | payer MEDICARE ==
[~2021-02-14] MED LIST changes: +K-DUR20 MEQ PO; +ZOFRAN ODT4 MG PO
== END ==
LOC: COL.VAS 01-19 13:45
DX: C50.212 Malignant neoplasm of upper-inner quadrant of left female breast (principal)

== ENCOUNTER 2021-02-21 07:07 | Emergency (ER) | payer MEDICARE, MEDICAID, OTHER ==
[~2021-02-21] VITALS: Ht 167.6 cm; Wt 77.3 kg
[~2021-02-21 07:07] MED LIST changes: -ZOFRAN ODT4 MG PO
[2021-02-21 07:27] VITALS: TEMP 97.8
[2021-02-21 07:49] LABS: BASO # 0.1 K/mm3 (0.0-0.2); BASO % 0.7 % (0.0-2.0); EOS % 0.5 % (0.0-4.0); GRAN # 5.5 K/mm3 (1.4-6.5); GRAN % 71.8 % (42.2-75.2); HEMATOCRIT 40.9 % (37.0-47.0); HEMOGLOBIN 14.5 g/dl (12.5-16.0); LYMPH # 1.3 K/mm3 (1.2-3.4); LYMPH % 16.4 % (20.0-51.0); MEAN CELL VOLUME 91 fl (80.0-100.0); MEAN CORPUSCULAR HEMOGLOBIN 32 pg (27-31); MEAN CORPUSCULAR HGB CONC 36 g/dl (33.0-37.0); MEAN PLATELET VOLUME 9.1 fl (7.4-10.4); MONO # 0.8 K/mm3 (0.1-0.6); MONO % 10.2 % (1.7-9.3); PLATELET COUNT 287 K/mm3 (130-400); REDCELL DISTRIBUTION WIDTH-CV 13.2 % (11.5-14.5)
[2021-02-21 08:21] LABS: ALBUMIN 4.3 gm/dL (3.4-4.8); CALCIUM 9.6 mg/dL (8.4-10.2); CREATININE, serum 0.99 mg/dL (0.57-1.11); POTASSIUM 3.9 mmol/L (3.5-4.5); TOTAL PROTEIN 7.7 gm/dL (6.2-8.1)
[2021-02-21] MEDS ORDERED: ZOFRAN ODT4 MG PO (09:56)
[2021-02-21 10:42] VITALS: BP 162/94; PULSE 102
== END 2021-02-21 10:42 | disposition home or self-care (01) ==
LOC: COL.ER 07:07
PROVIDERS: Emergency Medicine
DX: R11.2 Nausea with vomiting, unspecified (principal); E83.42 Hypomagnesemia; K21.9 Gastro-esophageal reflux disease without esophagitis; J44.9 Chronic obstructive pulmonary disease, unspecified; Z85.3 Personal history of malignant neoplasm of breast; Z90.710 Acquired absence of both cervix and uterus; Z90.89 Acquired absence of other organs; Z79.899 Other long term (current) drug therapy
CPT/HCPCS: J2270; J2405; J2765; J3475; J7030

== ENCOUNTER 2021-04-01 10:51 | Emergency (ER) | payer MEDICARE, MEDICAID, OTHER ==
[~2021-04-01] VITALS: Ht 152.4 cm; Wt 77.3 kg
[~2021-04-01 10:51] MED LIST changes: +ZOFRAN ODT4 MG PO
[2021-04-01 11:57] LABS: BASO # 0.1 K/mm3 (0.0-0.2); BASO % 1.1 % (0.0-2.0); EOS % 0.6 % (0.0-4.0); GRAN # 3.8 K/mm3 (1.4-6.5); GRAN % 72.3 % (42.2-75.2); HEMATOCRIT 40.3 % (37.0-47.0); HEMOGLOBIN 13.6 g/dl (12.5-16.0); LYMPH # 1.1 K/mm3 (1.2-3.4); LYMPH % 20.1 % (20.0-51.0); MEAN CELL VOLUME 96 fl (80.0-100.0); MEAN CORPUSCULAR HEMOGLOBIN 33 pg (27-31); MEAN CORPUSCULAR HGB CONC 34 g/dl (33.0-37.0); MONO # 0.3 K/mm3 (0.1-0.6); MONO % 5.7 % (1.7-9.3); PLATELET COUNT 229 K/mm3 (130-400); RED BLOOD COUNT 4.19 M/mm3 (4.10-5.30); REDCELL DISTRIBUTION WIDTH-CV 13.7 % (11.5-14.5)
[2021-04-01 12:16] LABS: ALBUMIN 3.6 gm/dL (3.4-4.8); BILIRUBIN,TOTAL 0.5 mg/dL (0.2-1.2); CALCIUM 7.9 mg/dL (8.4-10.2); CREATININE, serum 1.1 mg/dL (0.57-1.11); POTASSIUM 3.9 mmol/L (3.5-4.5); TOTAL PROTEIN 6.8 gm/dL (6.2-8.1)
[2021-04-01 12:34] VITALS: BP 123/87; PULSE 87
== END 2021-04-01 13:45 | disposition left against medical advice (07) ==
LOC: COL.ER 10:51
PROVIDERS: Student in an Organized Health Care Education/Training Program
DX: F10.10 Alcohol abuse, uncomplicated (principal); F17.210 Nicotine dependence, cigarettes, uncomplicated; Z20.822 Contact with and (suspected) exposure to COVID-19; Y90.8 Blood alcohol level of 240 mg/100 ml or more
CPT/HCPCS: J1885; J2765

== ENCOUNTER → 2021-04-10 | Outpatient (CLI) | payer MEDICARE, MEDICAID | LOC: MC.RAD 13:54 | DX: Z51.0 Encounter for antineoplastic radiation therapy (principal); N63.20 Unspecified lump in the left breast, unspecified quadrant; Z85.3 Personal history of malignant neoplasm of breast ==

== ENCOUNTER → 2021-04-14 | Outpatient (CLI) | payer MEDICARE, MEDICAID | LOC: MC.RAD 14:55 | DX: Z51.0 Encounter for antineoplastic radiation therapy (principal); N63.20 Unspecified lump in the left breast, unspecified quadrant; Z85.3 Personal history of malignant neoplasm of breast | CPT/HCPCS: 30634 ==

== ENCOUNTER 2021-06-26 09:45 | Outpatient (RCR) | payer MEDICARE, MEDICAID | END 2021-07-01 | disposition home or self-care (01) | LOC: WSPT | DX: M62.81 Muscle weakness (generalized) (principal) ==

== ENCOUNTER 2021-07-13 10:30 | Outpatient (RCR) | payer MEDICARE, MEDICAID | END 2021-07-25 07:45 | disposition home or self-care (01) | LOC: WSPT 10:30 | DX: M62.81 Muscle weakness (generalized) (principal) ==

== ENCOUNTER 2021-08-27 10:53 | Emergency (ER) | payer MEDICARE, MEDICAID ==
[~2021-08-27] VITALS: Ht 167.6 cm; Wt 77.3 kg
[2021-08-27 11:01] VITALS: TEMP 98.1
[2021-08-27 11:25] LABS: BASO # 0.1 K/mm3 (0.0-0.2); BASO % 1.3 % (0.0-2.0); EOS % 0.6 % (0.0-4.0); GRAN % 71.8 % (42.2-75.2); HEMATOCRIT 37.8 % (37.0-47.0); HEMOGLOBIN 13.8 g/dl (12.5-16.0); LYMPH # 1.2 K/mm3 (1.2-3.4); LYMPH % 17.6 % (20.0-51.0); MEAN CELL VOLUME 93 fl (80.0-100.0); MEAN CORPUSCULAR HEMOGLOBIN 34 pg (27-31); MEAN CORPUSCULAR HGB CONC 37 g/dl (33.0-37.0); MEAN PLATELET VOLUME 9.5 fl (7.4-10.4); MONO # 0.6 K/mm3 (0.1-0.6); MONO % 8.4 % (1.7-9.3); PLATELET COUNT 307 K/mm3 (130-400); RED BLOOD COUNT 4.08 M/mm3 (4.10-5.30); REDCELL DISTRIBUTION WIDTH-CV 14.4 % (11.5-14.5)
[2021-08-27 11:41] LABS: ALBUMIN 3.8 gm/dL (3.4-4.8); BILIRUBIN,TOTAL 1.3 mg/dL (0.2-1.2); CREATININE, serum 1.74 mg/dL (0.57-1.11); POTASSIUM 3.6 mmol/L (3.5-4.5)
[2021-08-27 11:55] LABS: TOTAL PROTEIN 7.3 gm/dL (6.2-8.1)
[2021-08-27 12:46] LABS: COLLECTION METHOD CLEAN CATCH
[2021-08-27 12:57] LABS: PH 5 (5-8); URINE APPEARANCE Clear (CLEAR/HAZY); URINE BACTERIA None Seen /hpf (NONE SEEN); URINE BILIRUBIN Negative (NEGATIVE); URINE BLOOD Negative (NEGATIVE); URINE COLOR Yellow (YELLOW); URINE GLUCOSE Negative (NEGATIVE); URINE KETONE Negative (NEGATIVE); URINE LEUKOCYTE ESTERASE Negative (NEGATIVE); URINE NITRATE Negative (NEGATIVE); URINE PROTEIN(semi-quant) Negative (NEGATIVE); URINE RBC 0-2 /hpf (0-2); URINE UROBILINOGEN Negative (NEGATIVE)
[2021-08-27] MEDS ORDERED: AMOXICILLIN 8751 TAB PO (15:15)
[2021-08-27] MEDS ORDERED: ZOFRAN ODT4 MG PO (15:17)
[2021-08-27 15:51] VITALS: BP 178/111; PULSE 113
== END 2021-08-27 15:51 | disposition home or self-care (01) ==
LOC: COL.ER 10:53
PROVIDERS: Nurse Practitioner Primary Care
DX: J06.9 Acute upper respiratory infection, unspecified (principal); R11.2 Nausea with vomiting, unspecified; F17.210 Nicotine dependence, cigarettes, uncomplicated; R74.02 Elevation of levels of lactic acid dehydrogenase [LDH]; Z88.1 Allergy status to other antibiotic agents; Z20.822 Contact with and (suspected) exposure to COVID-19
CPT/HCPCS: J0780; J2270; J2405; J2550; J7030; Q9967

== ENCOUNTER 2021-09-21 14:08 | Outpatient (RCR) | payer MEDICARE, MEDICAID ==
[2021-09-23] MEDS ORDERED: DITROPAN 5MG TAB5 MG PO (21:10)
[2021-09-23] MEDS ORDERED: FLEXERIL 1010 MG/TAB PO (21:15)
[2021-09-23] MEDS ORDERED: CARAFATE 1GM1 G PO (21:19)
[2021-09-23] MEDS ORDERED: NEURONTIN300 MG/CAP PO (21:19)
[2021-09-23] MEDS ORDERED: DESYREL 50MG50 MG PO (21:22)
[2021-09-23] MEDS ORDERED: XARELTO20 MG PO (21:24)
[2021-09-26] VITALS (61 sets, daily range): O2SAT 94–100
[2021-09-27] VITALS (33 sets, daily range): O2SAT 96–97
[2021-10-02] VITALS (51 sets, daily range): O2SAT 96–98
[2021-10-04] VITALS (62 sets, daily range): O2SAT 91–96
[2021-10-07] VITALS (471 sets, daily range): O2SAT 79–100
== END 2021-10-01 | disposition home or self-care (01) ==
LOC: WSPT
DX: M62.81 Muscle weakness (generalized) (principal)

== ENCOUNTER 2021-09-22 19:31 | Emergency (ER) | payer MEDICARE, MEDICAID ==
[~2021-09-22] VITALS: Ht 167.6 cm; Wt 77.3 kg
[2021-09-22 19:41] VITALS: TEMP 97.5
[2021-09-22 20:29] LABS: BASO # 0.1 K/mm3 (0.0-0.2); BASO % 0.8 % (0.0-2.0); EOS # 0.2 K/mm3 (0.0-0.7); EOS % 2.9 % (0.0-4.0); GRAN # 4.2 K/mm3 (1.4-6.5); GRAN % 63.6 % (42.2-75.2); HEMOGLOBIN 10.8 g/dl (12.5-16.0); LYMPH # 1.3 K/mm3 (1.2-3.4); LYMPH % 19.7 % (20.0-51.0); MEAN CELL VOLUME 102 fl (80.0-100.0); MEAN CORPUSCULAR HEMOGLOBIN 35 pg (27-31); MEAN CORPUSCULAR HGB CONC 34 g/dl (33.0-37.0); MEAN PLATELET VOLUME 10.4 fl (7.4-10.4); MONO # 0.8 K/mm3 (0.1-0.6); MONO % 12.5 % (1.7-9.3); PLATELET COUNT 184 K/mm3 (130-400); RED BLOOD COUNT 3.12 M/mm3 (4.10-5.30); REDCELL DISTRIBUTION WIDTH-CV 13.1 % (11.5-14.5)
[2021-09-22 20:31] LABS: HEMATOCRIT 31.7 % (37.0-47.0)
[2021-09-22 20:54] LABS: ALANINE AMINOTRANSFERASE 20 U/L (0-55); ALBUMIN 3.3 gm/dL (3.4-4.8); ALKALINE PHOSPHATASE 149 U/L (40-150); ANION GAP 17 mmol/L (7-16); AST,SGOT 27 U/L (5-34); BLOOD UREA NITROGEN 35 mg/dL (10-20); CARBON DIOXIDE 21 mmol/L (23-31); CHLORIDE 90 mmol/L (98-107); CREATININE, serum 3.69 mg/dL (0.57-1.11); GLUCOSE 116 mg/dL (70-99); POTASSIUM 4.7 mmol/L (3.5-4.5); SODIUM 128 mmol/L (136-145); TOTAL PROTEIN 6.1 gm/dL (6.2-8.1)
[2021-09-22 21:02] LABS: ALCOHOL(ethanol),MEDICAL < 10 mg/dL (0-10)
[2021-09-22 22:00] VITALS: BP 133/88; PULSE 60
[2021-09-23] MEDS ORDERED: DITROPAN 5MG TAB5 MG PO (21:10)
[2021-09-23] MEDS ORDERED: FLEXERIL 1010 MG/TAB PO (21:15)
[2021-09-23] MEDS ORDERED: CARAFATE 1GM1 G PO (21:19)
[2021-09-23] MEDS ORDERED: NEURONTIN300 MG/CAP PO (21:19)
[2021-09-23] MEDS ORDERED: DESYREL 50MG50 MG PO (21:22)
[2021-09-23] MEDS ORDERED: XARELTO20 MG PO (21:24)
[2021-09-26 00:18] VITALS: O2SAT 98
[2021-09-26 00:19] VITALS: O2SAT 88
[2021-09-26 00:20] VITALS: O2SAT 96
[2021-09-26 00:21] VITALS: O2SAT 96
[2021-09-28] VITALS (189 sets, daily range): O2SAT 95–100
== END 2021-09-22 22:10 | disposition home or self-care (01) ==
LOC: COL.ER 19:31
PROVIDERS: Personal Emergency Response Attendant
DX: N19 Unspecified kidney failure (principal); E87.1 Hypo-osmolality and hyponatremia; R29.6 Repeated falls; F17.210 Nicotine dependence, cigarettes, uncomplicated; Z20.822 Contact with and (suspected) exposure to COVID-19
CPT/HCPCS: J2270; J2405; J7030

== ENCOUNTER 2021-09-23 13:45 | Inpatient (IN) | payer MEDICARE, MEDICAID ==
[~2021-09-23] VITALS: Ht 167.6 cm; Wt 87.4 kg
[2021-09-23 14:44] LABS: BASO % 0.5 % (0.0-2.0); EOS # 0.2 K/mm3 (0.0-0.7); EOS % 3.2 % (0.0-4.0); GRAN % 67.4 % (42.2-75.2); LYMPH % 16.5 % (20.0-51.0); MEAN CELL VOLUME 104 fl (80.0-100.0); MEAN CORPUSCULAR HEMOGLOBIN 35 pg (27-31); MEAN CORPUSCULAR HGB CONC 33 g/dl (33.0-37.0); MEAN PLATELET VOLUME 10.8 fl (7.4-10.4); MONO # 0.7 K/mm3 (0.1-0.6); MONO % 12.1 % (1.7-9.3); PLATELET COUNT 160 K/mm3 (130-400); RED BLOOD COUNT 2.89 M/mm3 (4.10-5.30); REDCELL DISTRIBUTION WIDTH-CV 12.9 % (11.5-14.5)
[2021-09-23 14:48] LABS: HEMATOCRIT 29.9 % (37.0-47.0)
[2021-09-23 15:03] LABS: BILIRUBIN,TOTAL 0.7 mg/dL (0.2-1.2); CALCIUM 8.5 mg/dL (8.4-10.2); CREATININE, serum 2.53 mg/dL (0.57-1.11); POTASSIUM 4.5 mmol/L (3.5-4.5); TOTAL PROTEIN 5.4 gm/dL (6.2-8.1)
[2021-09-23 19:02] LABS: COLLECTION METHOD CLEAN CATCH
[2021-09-23 19:09] LABS: PH 6 (5-8); URINE APPEARANCE Clear (CLEAR/HAZY); URINE BACTERIA None Seen /hpf (NONE SEEN); URINE BLOOD Negative (NEGATIVE); URINE COLOR Straw (YELLOW); URINE GLUCOSE Negative (NEGATIVE); URINE KETONE Negative (NEGATIVE); URINE NITRATE Negative (NEGATIVE); URINE PROTEIN(semi-quant) Negative (NEGATIVE); URINE RBC 0-2 /hpf (0-2); URINE UROBILINOGEN Negative (NEGATIVE)
[2021-09-23] MEDS ORDERED: DITROPAN 5MG TAB5 MG PO (21:10)
[2021-09-23] MEDS ORDERED: FLEXERIL 1010 MG/TAB PO (21:15)
[2021-09-23] MEDS ORDERED: CARAFATE 1GM1 G PO (21:19)
[2021-09-23] MEDS ORDERED: NEURONTIN300 MG/CAP PO (21:19)
[2021-09-23] MEDS ORDERED: DESYREL 50MG50 MG PO (21:22)
[2021-09-23] MEDS ORDERED: XARELTO20 MG PO (21:24)
--- NOTE | 2021-09-23 21:45 | NUR ---
Admitted to medical floor from ER, alert/oriented ,, states her lower extremities feel like "jelly", states she fell today at doctors office and was taken to the ER- Dr. Walters here to assess pt tonight- orthostatic B/P was done,, 109/66 lying and 83/71 standing-states felt "dizzy" when standing- needed 2 assists due to weakness/unsteadiness. tele on.
[2021-09-24 00:35] VITALS: BP 105/67; PULSE 65; TEMP 97.5
[2021-09-24 04:21] VITALS: BP 128/77; PULSE 68; TEMP 97.5
--- NOTE | 2021-09-24 05:45 | NUR ---
Quiet night- Did get up to BSC with assist- voided good amount, has been eating snacks and drinking fluids well all night- is at times a little confused when first wakes up . Was started on IV fluids of NS at 100cc/hr, also was given Magnesium IV 2 gm during the night per orders.
[2021-09-24 07:20] LABS: BASO % 0.6 % (0.0-2.0); EOS # 0.3 K/mm3 (0.0-0.7); EOS % 4.4 % (0.0-4.0); GRAN % 63.7 % (42.2-75.2); HEMOGLOBIN 11.7 g/dl (12.5-16.0); LYMPH # 1.4 K/mm3 (1.2-3.4); LYMPH % 21.4 % (20.0-51.0); MEAN CELL VOLUME 104 fl (80.0-100.0); MEAN CORPUSCULAR HEMOGLOBIN 35 pg (27-31); MEAN CORPUSCULAR HGB CONC 33 g/dl (33.0-37.0); MEAN PLATELET VOLUME 11.3 fl (7.4-10.4); MONO # 0.6 K/mm3 (0.1-0.6); MONO % 9.3 % (1.7-9.3); PLATELET COUNT 197 K/mm3 (130-400); RED BLOOD COUNT 3.36 M/mm3 (4.10-5.30); REDCELL DISTRIBUTION WIDTH-CV 13.2 % (11.5-14.5)
--- NOTE | 2021-09-24 07:33 | NUR ---
PT AWAKE AND RESTING COMFORTABLY IN BED,BREAKFAST ORDERED. DENIES ANY COMPLAINTS AT THIS TIME.
[2021-09-24 07:42] LABS: ALBUMIN 3.3 gm/dL (3.4-4.8); CALCIUM 9.4 mg/dL (8.4-10.2); CREATININE, serum 1.69 mg/dL (0.57-1.11); MAGNESIUM 1.7 mg/dL (1.6-2.6); PHOSPHOROUS 2.2 mg/dL (2.3-4.7)
[2021-09-24 11:52] VITALS: BP 111/86; BP 114/75; PULSE 72; PULSE 86; TEMP 98.1
--- NOTE | 2021-09-24 16:00 | NUR ---
SW met with pt to complete intake. Pt lives at home with her life partner, Dayana [phone]. Pt reports she has two children, gordo and brent, but do not speak with them. Pt reports independent on all ADLs and does use a cane. PCP is Dr. Wong Vasquez and gets medications from [facility]. Pt reports not interested in DPAO-HC at this time, but understands her children are next of kin. Pt reports she has been doing PT at [facility] re[facility] for couple months ?? DC: Home w/ HH or OP PT; following.
[2021-09-24 16:06] VITALS: BP 146/86; PULSE 67; TEMP 97.9
--- NOTE | 2021-09-24 18:55 | NUR ---
PT HAD A CLM DAY, VSS, ORIENT AND ALERT X4, DUE MEDICATION GIVEN PRESCRIBED NO ADVERSE REACTION NOTED, DENIES COMPLAINTS OF PAIN.
[2021-09-24 19:46] VITALS: BP 155/88; PULSE 66; TEMP 97.9
[2021-09-24 23:57] VITALS: BP 138/87; PULSE 100; TEMP 97.5
[2021-09-25] VITALS (146 sets, daily range): BP systolic 151–178; BP diastolic 88–105; PULSE 76–92; TEMP 97.8–98.2; O2SAT 76–100
[2021-09-25 06:18] LABS: BASO % 0.4 % (0.0-2.0); EOS # 0.1 K/mm3 (0.0-0.7); EOS % 2.5 % (0.0-4.0); GRAN # 4.2 K/mm3 (1.4-6.5); GRAN % 74.4 % (42.2-75.2); HEMOGLOBIN 11.3 g/dl (12.5-16.0); LYMPH # 0.7 K/mm3 (1.2-3.4); LYMPH % 12.3 % (20.0-51.0); MEAN CELL VOLUME 102 fl (80.0-100.0); MEAN CORPUSCULAR HEMOGLOBIN 35 pg (27-31); MEAN CORPUSCULAR HGB CONC 34 g/dl (33.0-37.0); MEAN PLATELET VOLUME 10.8 fl (7.4-10.4); MONO # 0.5 K/mm3 (0.1-0.6); MONO % 9.7 % (1.7-9.3); PLATELET COUNT 189 K/mm3 (130-400); RED BLOOD COUNT 3.26 M/mm3 (4.10-5.30); REDCELL DISTRIBUTION WIDTH-CV 12.9 % (11.5-14.5)
[2021-09-25 06:35] LABS: HEMATOCRIT 33.2 % (37.0-47.0)
[2021-09-25 06:50] LABS: CREATININE, serum 1.12 mg/dL (0.57-1.11); PHOSPHOROUS 1.8 mg/dL (2.3-4.7); POTASSIUM 4.2 mmol/L (3.5-4.5)
--- NOTE | 2021-09-25 16:38 | NUR ---
Public Service Director observed patient leaving her room and was walking towards the covid unit. Patient stated to DAWSON she was leaving to smoke. RN redirected patient into her room. SW entered patient's room where RN was speaking with patient and her boyfriend, Arnold. Arnold advised patient is not in her right mind and is seeing things, like her mother and . Patient then states to DAWSON, "my mom is in the corner there". Arnold does not think patient should be allowed to leave in this condition. DAWSON advised the Hospitalist will be notified and makes the decision on decision making capacity. DAWSON reviewed DPOA-HC with RN. The most recent DPOA-HC on file designates Arnold as primary agent and Marimar, daughter as secondary agent. RN advised Arnold has made statements that once family arrives, he does not want to be the decision maker. DAWSON advised RN that if Arnold declines to make decisions, Marimar would be the next available agent.
--- NOTE | 2021-09-25 18:05 | NUR ---
PATIENT VERY CONFUSED, HAVING AUDITORY AND VISUAL HALUCINATIONS. NO COMPLAINTS OF PAIN. MOMENTS OF EXTREME ANXIETY. PATIENT SEEING PEOPLE IN HER ROOM, TALKING TO PEOPLE SHE CAN SEE IN HER MIRROR, TELLS THIS NURSE SHE IS AT THE FOOT [facility] AT THAT THERE IS TWO MEN IN HER BED. PATIENT GAIT IS VERY UNSTABLE. PATIENT SKIN IS YELLOWING. WILL CONTINUE TO MONITOR.
--- NOTE | 2021-09-25 20:03 | NUR ---
PATIENT VERY CONFUSED, MULTIPULE EPISODES OF PATIENT LEAVING BED, CHAIR AND ROOM. FALL ALARMS, BED ALARMS AND GENESIS ALARMS ON. PATIENT UNSTEADY ON HER FEET, NO FALLS OCCURED. PATIENT PRESUMABLY ENTERING INTO WITHDRAW SYMPTOMS. PATIENT EXPRESSED A HISTORY OF DRINKING A FIFTH OF WHISKY A DAY, APPORXIMATELY 4YRS AGO, UP TILL ROUGHLY 6 MONTHS AGO WHEN HER SIGNIFICANT OTHER STATES SHE WAS REDUCED TO A PINT A WEEK/MONTH. SIGNIFICANT OTHER STATES THAT HER COGNITION HAS BEEN DECLINING THEPAST 6 WEEKS, HE HAS BEEN UNABLE TO STAY WITH HER ALL THE TIME TO ENSURE HER SAFTEY. HE IS CONCERNED ABOUT HER TRYING TO LEAVE AMA.
--- NOTE | 2021-09-25 22:19 | NUR ---
PATIENT'S PRECEDEX RAPIDLY INCREASED TO MAX DOSE. PATIENT THRASHING IN BED, PULLING AT LINES AND TUBES, ATTEMPTING TO HIT STAFF MEMBERS. SEDATION INCREASED FOR PATIENT SAFETY. WILL CONTINUE TO MONITOR AND WEAN DRIP TOLERATED.
--- NOTE | 2021-09-25 22:26 | NUR ---
PATIENT ADMITTED TO ICU BED 7 FROM MEDICAL FLOOR AT 2135. PATIENT ADMITTED FROM FLOOR WITH PERIPHERAL IV. PLACED ON MONITOR AND PRECEDEX DRIP. ASSESSMENT ATTEMPTED TO BEST OF ABILITY. PATIENT IS DISORIENTED AND UNCOOPERATIVE WITH CARE AT THIS TIME. ALL SAFETY MEASURES MAINTAINED. WILL CONTINUE TO MONITOR
[2021-09-26] VITALS (1371 sets, daily range): BP systolic 76–158; BP diastolic 49–108; PULSE 60–65; TEMP 97.5–98.8; O2SAT 81–100
[2021-09-26 02:27] LABS: ARTERIAL BLD GAS O2 SATURATION 97.2 % (92-100); ARTERIAL BLD GAS TCO2 CT 25.9; ARTERIAL BLOOD GAS BASE EXCESS 1.1 (-2-2); ARTERIAL BLOOD GAS HCO3 24.8 meq/L (22-26); ARTERIAL BLOOD GAS PCO2 36.3 mmHg (35-45); ARTERIAL BLOOD GAS PO2 95.5 mmHg (80-100); ARTERIAL BLOOD GAS pH 7.45 (7.35-7.45)
--- NOTE | 2021-09-26 02:37 | NUR ---
precedex held per hospitalist at bedside
--- NOTE | 2021-09-26 03:42 | NUR ---
RECEIVED ORDERS FROM DOCTOR IN EMAR. PRESENTED TO ROOM TO INCREASE RATE TO MATCH ORDERS. PT RESTING COMFORTABLY IN BED. NO SIGNS OF DISTRESS. NO VOICED CONCERNS FROM NURSES OR PT. RAILS X3 UP. VENT WHEELS LOCKED.
[2021-09-26 05:23] LABS: ARTERIAL BLD GAS O2 SATURATION 99.2 % (92-100); ARTERIAL BLD GAS TCO2 CT 25.1; ARTERIAL BLOOD GAS BASE EXCESS 3.3 (-2-2); ARTERIAL BLOOD GAS HCO3 24.3 meq/L (22-26); ARTERIAL BLOOD GAS pH 7.59 (7.35-7.45)
[2021-09-26 05:25] LABS: ARTERIAL BLOOD GAS PO2 203.5 mmHg (80-100)
--- NOTE | 2021-09-26 05:33 | NUR ---
SIOBHAN NORWOOD CONTACTED WITH ABG RESULTS. VERBAL ORDER TO DECREASE RATE TO 16. CHANGES MADE AT THIS TIME, TOLERATING WELL.
[2021-09-26 05:41] LABS: COLLECTION METHOD CATHETER
[2021-09-26 06:08] LABS: AMORPHOUS CRYSTAL Present (NOT PRESENT); PH 7 (5-8); SQUAMOUS EPITHELIAL >50 /hpf (0-10); URINE APPEARANCE Cloudy (CLEAR/HAZY); URINE BACTERIA None Seen /hpf (NONE SEEN); URINE BLOOD Negative (NEGATIVE); URINE COLOR Yellow (YELLOW); URINE GLUCOSE Negative (NEGATIVE); URINE KETONE Negative (NEGATIVE); URINE NITRATE Negative (NEGATIVE); URINE PROTEIN(semi-quant) Negative (NEGATIVE); URINE RBC 0-2 /hpf (0-2); URINE UROBILINOGEN Negative (NEGATIVE)
[2021-09-26 06:32] LABS: BASO % 0.4 % (0.0-2.0); EOS # 0.1 K/mm3 (0.0-0.7); EOS % 2.7 % (0.0-4.0); GRAN % 63.3 % (42.2-75.2); LYMPH % 20.5 % (20.0-51.0); MEAN CELL VOLUME 101 fl (80.0-100.0); MEAN CORPUSCULAR HGB CONC 35 g/dl (33.0-37.0); MEAN PLATELET VOLUME 10.7 fl (7.4-10.4); MONO # 0.6 K/mm3 (0.1-0.6); MONO % 12.9 % (1.7-9.3); PLATELET COUNT 172 K/mm3 (130-400); REDCELL DISTRIBUTION WIDTH-CV 12.7 % (11.5-14.5)
[2021-09-26 06:40] LABS: HEMATOCRIT 28.3 % (37.0-47.0); HEMOGLOBIN 9.8 g/dl (12.5-16.0); MEAN CORPUSCULAR HEMOGLOBIN 35 pg (27-31)
[2021-09-26 06:57] LABS: ALBUMIN 2.8 gm/dL (3.4-4.8); CALCIUM 8.6 mg/dL (8.4-10.2); CREATININE, serum 0.9 mg/dL (0.57-1.11); MAGNESIUM 1.2 mg/dL (1.6-2.6); POTASSIUM 3.7 mmol/L (3.5-4.5)
--- NOTE | 2021-09-26 08:00 | NUR ---
SHIFT REPORT RECEIVED. XR SHOWED OG TUBE NOT IN CORRECT PLACEMENT. OG TUBE REMOVED AND REPLACED AT 60CM AT THE TEETH.
[2021-09-26 10:42] LABS: ARTERIAL BLD GAS O2 SATURATION 96.3 % (92-100); ARTERIAL BLD GAS TCO2 CT 25.6; ARTERIAL BLOOD GAS BASE EXCESS -0.3 (-2-2); ARTERIAL BLOOD GAS HCO3 24.4 meq/L (22-26); ARTERIAL BLOOD GAS PCO2 39.8 mmHg (35-45); ARTERIAL BLOOD GAS pH 7.41 (7.35-7.45)
[2021-09-26 12:42] LABS: LYME DISEASE ANTIBODIES Negative (Negative)
--- NOTE | 2021-09-26 17:00 | NUR ---
PT NOT STABLE, WAS AWAKE AT 11AM AND WAS AGGITATED, NOT ABLE TO FOLLOW COMMANDS, PULLING AT LINES.
--- NOTE | 2021-09-26 18:46 | NUR ---
PT IS ABLE TO WAKE UP OCCASIONALLY. SHE BECOMES VERY AGGITATED AND TRIES TO SIT UP IN BED AND REACH FOR TUBING. RESTRAINTS SECURE. RAILS UP. HOB ELEVATED. VENT WHEELS LOCKED. LEAVING ROOM PT IS CALM AND LAYING IN BED COMFORTABLY. RAILS UP X4
--- NOTE | 2021-09-26 20:30 | NUR ---
Patient intubated and sedated at this time. Repositioend. Patient boyfriend called at 1939 requesting update. Updated provided. Denies any other questions.
[2021-09-27] VITALS (1191 sets, daily range): BP systolic 80–109; BP diastolic 50–64; PULSE 62–75; TEMP 97.7–100.3; O2SAT 64–100
--- NOTE | 2021-09-27 00:06 | NUR ---
RN IN ROOM AT THIS TIME WORKING WITH PT. NO DISTRESS NOTED AT THIS TIME, NO COMPLAINTS NO CONCERNS. PT RESTING COMFORTABLY. NO CHANGES. RESTRAINTS SECURE. RAILS UP,
--- NOTE | 2021-09-27 05:30 | NUR ---
UNABLE TO CHECK VENT AT THIS TIME DUE TO WORKLOAD. NO CALLS OF CONCERN.
[2021-09-27 05:34] LABS: ARTERIAL BLD GAS O2 SATURATION 95.3 % (92-100); ARTERIAL BLD GAS TCO2 CT 26.4; ARTERIAL BLOOD GAS HCO3 25.2 meq/L (22-26); ARTERIAL BLOOD GAS PO2 78.9 mmHg (80-100); ARTERIAL BLOOD GAS pH 7.43 (7.35-7.45)
[2021-09-27 06:15] LABS: BASO % 0.3 % (0.0-2.0); EOS # 0.2 K/mm3 (0.0-0.7); EOS % 3.2 % (0.0-4.0); GRAN # 4.2 K/mm3 (1.4-6.5); GRAN % 58.7 % (42.2-75.2); HEMOGLOBIN 10.9 g/dl (12.5-16.0); LYMPH # 1.4 K/mm3 (1.2-3.4); LYMPH % 19.5 % (20.0-51.0); MEAN CORPUSCULAR HEMOGLOBIN 35 pg (27-31); MEAN CORPUSCULAR HGB CONC 33 g/dl (33.0-37.0); MEAN PLATELET VOLUME 10.5 fl (7.4-10.4); MONO # 1.3 K/mm3 (0.1-0.6); PLATELET COUNT 228 K/mm3 (130-400); RED BLOOD COUNT 3.15 M/mm3 (4.10-5.30); REDCELL DISTRIBUTION WIDTH-CV 13.6 % (11.5-14.5)
--- NOTE | 2021-09-27 06:19 | NUR ---
Patient awakens with current sedation. Some agitation present. Able to redirect. Patient following commands this AM.
[2021-09-27 06:21] LABS: HEMATOCRIT 33.3 % (37.0-47.0); MEAN CELL VOLUME 106 fl (80.0-100.0)
[2021-09-27 06:31] LABS: ALBUMIN 2.6 gm/dL (3.4-4.8); CALCIUM 8.6 mg/dL (8.4-10.2); CREATININE, serum 1.06 mg/dL (0.57-1.11); MAGNESIUM 1.9 mg/dL (1.6-2.6); PHOSPHOROUS 4.7 mg/dL (2.3-4.7); POTASSIUM 4.7 mmol/L (3.5-4.5)
--- NOTE | 2021-09-27 07:00 | NUR ---
REPORT RECEIVED FROM ASHLEY GREGORY. PT REMAINS ON VENTILATOR. APPEARS TO BE RESTING COMFORTABLY. NO S/S OF DISCOMFORT. BILATERAL SOFT WRIST RESTRAINTS IN PLACE. ETT 23CM AT TEETH. OG TUBE 60CM AT TEETH. MEDICATIONS INFUSING SEE DRIP FLOWSHEET.
--- NOTE | 2021-09-27 07:25 | NUR ---
Report given to COLT Gutiérrez
[2021-09-27 10:14] LABS: A/G RATIO (PEP) 0.97 (())
--- NOTE | 2021-09-27 16:48 | NUR ---
THIS NURSE SPOKE WITH ANESTHESIA REGUARDING LUMBAR PUNCTURE. ANESTHESIA REFUSING TO DO PROCEDURE AT THIS TIME DUE TO IT BEING A DIAGNOSTIC PROCEDURE. WILL CONSULT RADIOLOGY TO DO LP IN AM.
--- NOTE | 2021-09-27 17:02 | NUR ---
SEDATION VACATION NOT NECESSARY AT THIS TIME. PT BECOMES EASILY AGITATED WITH ANY STIMULATION OR MOVEMENT. DIFFICULT TO RESEDATE.
--- NOTE | 2021-09-27 19:40 | NUR ---
Assessment complete and charted. Patient intubated and sedated. Repositioned.
--- NOTE | 2021-09-27 21:14 | NUR ---
Clarified starting heparin gtt with Trixie PEMBERTON. Attempting to find what time LP in AM will be and when to stop heparin gtt. Starting for now.
[2021-09-27 21:47] LABS: PARTIAL THROMBOPLASTIN TIME 31.9 SECONDS (26.0-37.0)
[2021-09-28] VITALS (786 sets, daily range): BP systolic 74–132; BP diastolic 47–69; PULSE 73–97; TEMP 97.8–101.8; O2SAT 75–100
--- NOTE | 2021-09-28 02:07 | NUR ---
Heparin gtt stopped at this time.
--- NOTE | 2021-09-28 05:11 | NUR ---
Patient awakens with aggitation on current sedation. Not following commands this AM.
[2021-09-28 06:11] LABS: MEAN CELL VOLUME 105 fl (80.0-100.0); MEAN CORPUSCULAR HGB CONC 33 g/dl (33.0-37.0); MEAN PLATELET VOLUME 10.5 fl (7.4-10.4); PLATELET COUNT 212 K/mm3 (130-400); RED BLOOD COUNT 2.78 M/mm3 (4.10-5.30); REDCELL DISTRIBUTION WIDTH-CV 13.2 % (11.5-14.5)
[2021-09-28 06:16] LABS: HEMATOCRIT 29.3 % (37.0-47.0); HEMOGLOBIN 9.8 g/dl (12.5-16.0); MEAN CORPUSCULAR HEMOGLOBIN 35 pg (27-31)
[2021-09-28 06:28] LABS: ALBUMIN 2.2 gm/dL (3.4-4.8); CALCIUM 8.1 mg/dL (8.4-10.2); CREATININE, serum 0.85 mg/dL (0.57-1.11); MAGNESIUM 1.2 mg/dL (1.6-2.6); PHOSPHOROUS 4.9 mg/dL (2.3-4.7); POTASSIUM 4.4 mmol/L (3.5-4.5)
--- NOTE | 2021-09-28 07:21 | NUR ---
Report given to COLT Gutiérrez
[2021-09-28 07:49] LABS: BAND 5 % (0-10); EOSINOPHIL 4 % (0-4); LYMPHOCYTE 14 % (20.0-51.0); NEUTROPHILS 67 % (42.0-75.2)
[2021-09-28 07:50] LABS: PLATELET ESTIMATE NORMAL (NORMAL)
[2021-09-28 07:56] LABS: TEAR DROP CELLS 1+
--- NOTE | 2021-09-28 08:30 | NUR ---
PT ASSESSMENT COMPLETED. TEMPERATURE WAS ELEVATED TO 101.8. TYLENOL GIVEN. WILL CONTINUE TO MONITOR.
--- NOTE | 2021-09-28 09:08 | NUR ---
REPORT RECEIVED FROM COLT RAMIREZ. BILATERAL SOFT WRIST RESTRAINTS IN PLACE. PT SEDATED AND INTUBATED. APPEARS TO BE RESTING COMFORTABLY. SEE DRIP FLOW SHEET FOR MEDICATION INFUSION.
[2021-09-28 10:04] LABS: ARTERIAL BLD GAS O2 SATURATION 95.6 % (92-100); ARTERIAL BLD GAS TCO2 CT 24.8; ARTERIAL BLOOD GAS BASE EXCESS -2.2 (-2-2); ARTERIAL BLOOD GAS HCO3 23.5 meq/L (22-26); ARTERIAL BLOOD GAS PO2 81.5 mmHg (80-100); ARTERIAL BLOOD GAS pH 7.35 (7.35-7.45)
--- NOTE | 2021-09-28 18:10 | NUR ---
PT IS IN AN ALCOHOL DETOX. PT BECOMES AGITATED WHEN SEDATION IS DECREASED.
[2021-09-29] VITALS (1046 sets, daily range): BP systolic 87–139; BP diastolic 54–77; PULSE 65–95; TEMP 98.1–100.7; O2SAT 79–100
[2021-09-29 02:41] LABS: ARTERIAL BLD GAS O2 SATURATION 98.8 % (92-100); ARTERIAL BLD GAS TCO2 CT 25.8; ARTERIAL BLOOD GAS BASE EXCESS -0.5 (-2-2); ARTERIAL BLOOD GAS HCO3 24.5 meq/L (22-26); ARTERIAL BLOOD GAS PCO2 41.8 mmHg (35-45); ARTERIAL BLOOD GAS pH 7.39 (7.35-7.45)
[2021-09-29 02:43] LABS: ARTERIAL BLOOD GAS PO2 160.8 mmHg (80-100)
[2021-09-29 05:13] LABS: ARTERIAL BLD GAS O2 SATURATION 98.1 % (92-100); ARTERIAL BLD GAS TCO2 CT 25.9; ARTERIAL BLOOD GAS BASE EXCESS -0.9 (-2-2); ARTERIAL BLOOD GAS HCO3 24.6 meq/L (22-26); ARTERIAL BLOOD GAS PCO2 43.9 mmHg (35-45); ARTERIAL BLOOD GAS PO2 116.6 mmHg (80-100); ARTERIAL BLOOD GAS pH 7.37 (7.35-7.45)
[2021-09-29 06:44] LABS: MEAN CELL VOLUME 105 fl (80.0-100.0); MEAN CORPUSCULAR HGB CONC 33 g/dl (33.0-37.0); MEAN PLATELET VOLUME 10.6 fl (7.4-10.4); PLATELET COUNT 248 K/mm3 (130-400); RED BLOOD COUNT 2.75 M/mm3 (4.10-5.30)
--- NOTE | 2021-09-29 06:45 | NUR ---
PT VERY EASILY AGITATED WITH EVEN SLIGHTEST CONTACT. DURING BATH EARLIER IN SHIFT PT DESATTED INTO 80S AND WOULD NOT FOLLOW COMMANDS WHILE STILL ON SAME AMOUNT OF SEDATION
[2021-09-29 06:48] LABS: HEMATOCRIT 28.8 % (37.0-47.0); HEMOGLOBIN 9.6 g/dl (12.5-16.0); MEAN CORPUSCULAR HEMOGLOBIN 35 pg (27-31)
--- NOTE | 2021-09-29 08:00 | NUR ---
SHIFT REPORT RECEIVED. PT HAD 350ML BROWN RESIDUAL FROM OG TUBE. TUBE FEEDINGS HELD. RESIDUAL RECHECKED AT 1200, 450ML RETURNED. HOSPITALIST NOTIFIED AND PT ON LIS. HOSPITALIST RESTARED HEPARIN DRIP STARTED SINCE PT NOT ABLE TO HAVE ORAL MEDS THROUGH OG TUBE. PT WITH HYPOACTIVE BOWEL SOUNDS. HOSPITALIST NOTIFIED.
[2021-09-29 09:50] LABS: CALCIUM 8.4 mg/dL (8.4-10.2); CREATININE, serum 0.74 mg/dL (0.57-1.11); MAGNESIUM 1.5 mg/dL (1.6-2.6); POTASSIUM 4.2 mmol/L (3.5-4.5)
[2021-09-29 14:19] LABS: PARTIAL THROMBOPLASTIN TIME 31.8 SECONDS (26.0-37.0)
[2021-09-29 21:07] LABS: CADMIUM BLOOD 0.7 ng/mL (<5.0); LEAD,SERUM** 1.4 mcg/dL (<5.0); MERCURY,SERUM <1 ng/mL (<10)
--- NOTE | 2021-09-29 21:53 | NUR ---
BEDSIDE SHIFT REPORT RECEIVED FROM COLT NUNO. PT CURRENTLY RESTING IN BED WITH AT BEDSIDE. NO C/O PAIN OR DISCOMFORT AT THIS TIME. LINES RUNNING ACCORDING TO REPORT (SEE DRIP FLOW SHEET). ANAYA DRAINING APPROPRIATELY. VSS, NO ACUTE CHANGES AT THIS TIME
--- NOTE | 2021-09-29 22:00 | NUR ---
BEDSIDE SHFIT REPORT RECEIVED FROM COLT NUNO. PT CURRENTLY IN BED VENTED AND ON SEDATION WEENING TRIAL. PT HAS INCREASING RESTLESSNESS AND AGGITATION, WILL END CURRENT WEENING TRIAL AND ATTEMPT AGAIN IN THE MORNING. ALL LINES RUNNING ACCORDING TO REPORT (SEE DRIP FLOW SHEET). ANAYA DRAINING APPROPRIATELY. VENT SETTINGS ACCORDING TO REPORT. VSS
[2021-09-29 23:49] LABS: PARTIAL THROMBOPLASTIN TIME 34.6 SECONDS (26.0-37.0)
[2021-09-30] VITALS (1335 sets, daily range): BP systolic 94–158; BP diastolic 61–88; PULSE 60–84; TEMP 97–99; O2SAT 75–100
--- NOTE | 2021-09-30 02:29 | NUR ---
UNABLE TO DOCUMENT AGAINST TASK, NEW PATIENT WITH VENTILATOR SET UP
--- NOTE | 2021-09-30 08:45 | NUR ---
Assisted up to the commode to void. Gait shuffled but tolerated transfer well. Alert and oriented and in no distress during am assessment. VS stable. Dressing on R great toe was removed. Wound cleansed with NS and a new dresssing was applied. Wound is approximately dime size with a shallow pink wound bed. Patient also has a stage 2 wound on coccyx. Area covered with a mepilex which was placed overnight and is clean, dry and intact. Did not removed dressing at this time. Call light left within reach.
--- NOTE | 2021-09-30 09:17 | NUR ---
BEDSIDE REPORT RECEIVED FROM COLT LEHMAN. PT IS LAYING IN BED, ON VENTILATOR, RESTRAINTS IN PLACE. VENT SETTINGS FOLLOWS: FIO2 30%, TV 420, RR 14, PEEP 5, AC MODE, MEASURING 23 AT TEETH. OG TUBE IN PLACE TO LIS, MEASURING 60CM AT TEETH. MEDS INFUSING TO RIJ ORDERED, SEE FLOWSHEET.
[2021-09-30 11:03] LABS: ARTERIAL BLD GAS O2 SATURATION 96.2 % (92-100); ARTERIAL BLD GAS TCO2 CT 25.2; ARTERIAL BLOOD GAS BASE EXCESS 0.2 (-2-2); ARTERIAL BLOOD GAS HCO3 24.1 meq/L (22-26); ARTERIAL BLOOD GAS PCO2 36.3 mmHg (35-45); ARTERIAL BLOOD GAS pH 7.44 (7.35-7.45)
[2021-09-30 14:31] LABS: CALCIUM 8.6 mg/dL (8.4-10.2); CREATININE, serum 0.62 mg/dL (0.57-1.11); POTASSIUM 3.8 mmol/L (3.5-4.5)
--- NOTE | 2021-09-30 18:38 | NUR ---
SEDATION VACATION NOT PERFORMED AT THIS TIME PER DR RIBEIRO. WILL ATTEMPT TOMORROW MORNING.
--- NOTE | 2021-09-30 20:23 | NUR ---
BEDSIDE SHIFT REPORT RECEIVED FROM COLT DUMONT. PT CURRENTLY VENTED/SEDATED. NO SEDATION HOLIDAY WILL BE PERFORMED TONIGHT PER MD REQUEST. ALL LINES RUNNING ACCORDING TO REPORT (SEE DRIP FLOW SHEET). VENT SETTINGS ACCORDING TO REPORT. ANAYA DRAINING APPROPRIATELY. VSS. NO ACUTE CHANGES AT THIS TIME
[2021-10-01] VITALS (1222 sets, daily range): BP systolic 90–160; BP diastolic 52–92; PULSE 60–86; TEMP 98–99.4; O2SAT 59–99
[2021-10-01 05:34] LABS: BASO % 0.3 % (0.0-2.0); EOS # 0.2 K/mm3 (0.0-0.7); EOS % 2.5 % (0.0-4.0); GRAN # 7.2 K/mm3 (1.4-6.5); GRAN % 77.3 % (42.2-75.2); LYMPH # 0.8 K/mm3 (1.2-3.4); LYMPH % 8.3 % (20.0-51.0); MEAN CELL VOLUME 101 fl (80.0-100.0); MEAN CORPUSCULAR HGB CONC 34 g/dl (33.0-37.0); MEAN PLATELET VOLUME 10.4 fl (7.4-10.4); MONO # 1.1 K/mm3 (0.1-0.6); MONO % 11.3 % (1.7-9.3); PLATELET COUNT 230 K/mm3 (130-400); RED BLOOD COUNT 2.69 M/mm3 (4.10-5.30); REDCELL DISTRIBUTION WIDTH-CV 13.2 % (11.5-14.5)
[2021-10-01 05:39] LABS: HEMATOCRIT 27.1 % (37.0-47.0); HEMOGLOBIN 9.3 g/dl (12.5-16.0); MEAN CORPUSCULAR HEMOGLOBIN 35 pg (27-31)
[2021-10-01 06:04] LABS: ARTERIAL BLD GAS O2 SATURATION 89.9 % (92-100); ARTERIAL BLD GAS TCO2 CT 25.2; ARTERIAL BLOOD GAS BASE EXCESS -1.2 (-2-2); ARTERIAL BLOOD GAS HCO3 23.9 meq/L (22-26); ARTERIAL BLOOD GAS PCO2 41.6 mmHg (35-45); ARTERIAL BLOOD GAS PO2 60.8 mmHg (80-100); ARTERIAL BLOOD GAS pH 7.38 (7.35-7.45)
[2021-10-01 06:05] LABS: ALBUMIN 1.8 gm/dL (3.4-4.8); CALCIUM 8.2 mg/dL (8.4-10.2); CREATININE, serum 0.58 mg/dL (0.57-1.11); PHOSPHOROUS 3.5 mg/dL (2.3-4.7); POTASSIUM 3.5 mmol/L (3.5-4.5)
--- NOTE | 2021-10-01 09:06 | NUR ---
RECEIVED BEDSIDE REPORT FROM COLT LEHMAN. PT LYING IN BED, ON VENT. VENT SETTINGS AT 30% FIO2, 420 TV, RR 14, PEEP 5. ET TUBE MEASURES 23 @ TEETH. TUBE FEEDING RUNNING AT 10ML/HR. ANAYA CATHETER IN PLACE. MEDS RUNNING TO PICC LINE IN R UPPER ARM, SEE FLOWSHEET FOR RATES. SOFT WRIST RESTRAINTS IN PLACE PT DOES BECOME AGITATATED FREQUENTLY AND ATTEMPTS TO PULL AT LINES. PT OPENS EYES TO VOICE BUT DOES NOT FOLLOW COMMANDS.
--- NOTE | 2021-10-01 17:37 | NUR ---
PT BECOMES AGITATED W/ ANY CARES OR REPOSITIONING, ATTEMPTS TO PULL AT LINES AND ET TUBE. SEDATION VACATION NOT APPROPRIATE AT THIS TIME.
[2021-10-02] VITALS (927 sets, daily range): BP systolic 101–170; BP diastolic 55–94; PULSE 60–78; TEMP 98–99.7; O2SAT 71–100
[2021-10-02 04:37] LABS: BASO % 0.5 % (0.0-2.0); EOS # 0.2 K/mm3 (0.0-0.7); EOS % 2.6 % (0.0-4.0); GRAN # 4.7 K/mm3 (1.4-6.5); LYMPH % 15.5 % (20.0-51.0); MEAN CELL VOLUME 101 fl (80.0-100.0); MEAN CORPUSCULAR HGB CONC 33 g/dl (33.0-37.0); MEAN PLATELET VOLUME 10.5 fl (7.4-10.4); MONO # 0.7 K/mm3 (0.1-0.6); MONO % 10.5 % (1.7-9.3); PLATELET COUNT 232 K/mm3 (130-400); RED BLOOD COUNT 2.71 M/mm3 (4.10-5.30); REDCELL DISTRIBUTION WIDTH-CV 13.2 % (11.5-14.5)
[2021-10-02 04:41] LABS: HEMATOCRIT 27.4 % (37.0-47.0); MEAN CORPUSCULAR HEMOGLOBIN 33 pg (27-31)
[2021-10-02 04:56] LABS: ALBUMIN 1.8 gm/dL (3.4-4.8); BILIRUBIN,TOTAL 0.3 mg/dL (0.2-1.2); CALCIUM 8.7 mg/dL (8.4-10.2); CREATININE, serum 0.64 mg/dL (0.57-1.11); MAGNESIUM 1.7 mg/dL (1.6-2.6); PHOSPHOROUS 3.8 mg/dL (2.3-4.7); POTASSIUM 4.1 mmol/L (3.5-4.5); TOTAL PROTEIN 5.1 gm/dL (6.2-8.1)
[2021-10-02 04:57] LABS: ARTERIAL BLD GAS O2 SATURATION 95.6 % (92-100); ARTERIAL BLD GAS TCO2 CT 23.3; ARTERIAL BLOOD GAS BASE EXCESS -3.3 (-2-2); ARTERIAL BLOOD GAS PCO2 40.5 mmHg (35-45); ARTERIAL BLOOD GAS PO2 83.2 mmHg (80-100); ARTERIAL BLOOD GAS pH 7.35 (7.35-7.45)
--- NOTE | 2021-10-02 07:00 | NUR ---
BEDSIDE REPORT RECEIVED FROM COLT URENA. PT INTUBATED AND SEDATED AT THIS TIME. PT ACCEPTING MECHANICAL VENTILATION. NO S/S DISCOMFORT AT THIS TIME. BILATERAL SOFT WRIST RESTRAINTS IN PLACE. SEE GTT FLOW SHEET FOR RATES OF MEDICATION INFUSIONS.
--- NOTE | 2021-10-02 09:29 | NUR ---
Patient remains intubated at this time. DAWSON met with patient's life partner/DPOA-HC, Arnold who inquired about alcohol rehab. DAWSON advised Arnold that patient may require PT/OT rehab prior to alcohol rehab as she's been intubated for about a week. DAWSON also advised Arnold that patient would have to be agreeable to alcohol treatment. Arnold verbalized understanding.
--- NOTE | 2021-10-02 17:05 | NUR ---
SEDATION VACATION NOT NEEDED PER DR RIBEIRO
[2021-10-03] VITALS (1304 sets, daily range): BP systolic 113–160; BP diastolic 41–84; PULSE 60–88; TEMP 97.4–99.8; O2SAT 77–100
[2021-10-03 05:03] LABS: ARTERIAL BLD GAS O2 SATURATION 90.2 % (92-100); ARTERIAL BLOOD GAS BASE EXCESS -0.6 (-2-2); ARTERIAL BLOOD GAS HCO3 23.9 meq/L (22-26); ARTERIAL BLOOD GAS PCO2 38.6 mmHg (35-45); ARTERIAL BLOOD GAS PO2 60.3 mmHg (80-100); ARTERIAL BLOOD GAS pH 7.41 (7.35-7.45)
[2021-10-03 05:38] LABS: BASO % 0.5 % (0.0-2.0); EOS # 0.2 K/mm3 (0.0-0.7); EOS % 2.4 % (0.0-4.0); GRAN # 5.7 K/mm3 (1.4-6.5); GRAN % 64.9 % (42.2-75.2); LYMPH # 1.7 K/mm3 (1.2-3.4); LYMPH % 19.3 % (20.0-51.0); MEAN CELL VOLUME 100 fl (80.0-100.0); MEAN CORPUSCULAR HGB CONC 34 g/dl (33.0-37.0); MEAN PLATELET VOLUME 11.1 fl (7.4-10.4); MONO % 11.5 % (1.7-9.3); PLATELET COUNT 269 K/mm3 (130-400); RED BLOOD COUNT 2.53 M/mm3 (4.10-5.30); REDCELL DISTRIBUTION WIDTH-CV 13.2 % (11.5-14.5)
[2021-10-03 05:48] LABS: HEMATOCRIT 25.4 % (37.0-47.0); HEMOGLOBIN 8.5 g/dl (12.5-16.0); MEAN CORPUSCULAR HEMOGLOBIN 34 pg (27-31)
[2021-10-03 05:53] LABS: ALBUMIN 1.9 gm/dL (3.4-4.8); CALCIUM 8.8 mg/dL (8.4-10.2); CREATININE, serum 0.66 mg/dL (0.57-1.11); MAGNESIUM 1.8 mg/dL (1.6-2.6); PHOSPHOROUS 3.4 mg/dL (2.3-4.7); POTASSIUM 3.8 mmol/L (3.5-4.5)
--- NOTE | 2021-10-03 06:30 | NUR ---
REPORT RECEIVED FROM COLT URENA; PATIENT CURRENTLY OFF OF SEDATION AND AGITATED BUT WILL CALM DOWN WHEN SPOKEN TO. VITAL SIGNS ARE ALL WITHIN NORMAL LIMITS. ONLY NS IS RUNNING THROUGH HER PICC; TUBE FEEDS ARE ALSO RUNNING THROUGH OG TUBE.
--- NOTE | 2021-10-03 06:35 | NUR ---
SO FAR SO GOOD PATIENT IS CALM B/P RELAXED
[2021-10-03 09:56] LABS: ARTERIAL BLD GAS O2 SATURATION 92.5 % (92-100); ARTERIAL BLD GAS TCO2 CT 24.3; ARTERIAL BLOOD GAS BASE EXCESS -1.4 (-2-2); ARTERIAL BLOOD GAS HCO3 23.1 meq/L (22-26); ARTERIAL BLOOD GAS PCO2 37.8 mmHg (35-45); ARTERIAL BLOOD GAS PO2 67.7 mmHg (80-100)
--- NOTE | 2021-10-03 10:46 | NUR ---
Patient was extubated, then reintubated shortly after. Classified Advertising Supervisor spoke with Hospitalist about [facility] referral, however Hospitalist did not feel this was indicated at this time.
--- NOTE | 2021-10-03 10:50 | NUR ---
PATIENT EXTUBATED BY RT MIGUEL THIS MORNING AT APPROX 1000. PATIENT WAS RESPONSIVE AND FOLLOWING COMMANDS, HOWEVER, TIME PASSED SHE BECAME INCREASINGLY LESS RESPONSIVE AND WAS EXPERIENCING STRIDOR AND LABORED BREATHING. THE DECISION WAS MADE BY DR. RIBEIRO TO REINTUBATE. KEVIN MAHAJAN, ARRIVED ON THE UNIT AT 1032 AND TIME OUT WAS DONE AT 1035. SEDATION MEDS WERE GIVEN AT 1036 AND INTUBATION OCCURED AT 1037 WITH COLOR CHANGE AT 1038. A 7.5 ETT WAS USED AND PLACED AT 24 AT THE LIPS. OG PLACED BY COLT DOMINGUEZ AT 1048 AND WAS PLACED AT 65 AT THE TEETH. PATIENT TOLERATED PROCEDURE WELL AND IS CURRENTLY SEDATED AND BACK ON THE PREVIOUS VENTILATOR SETTINGS.
[2021-10-03 13:01] LABS: ARTERIAL BLD GAS O2 SATURATION 93.1 % (92-100); ARTERIAL BLD GAS TCO2 CT 25.5; ARTERIAL BLOOD GAS BASE EXCESS -0.2 (-2-2); ARTERIAL BLOOD GAS HCO3 24.3 meq/L (22-26); ARTERIAL BLOOD GAS PCO2 39.1 mmHg (35-45); ARTERIAL BLOOD GAS PO2 67.4 mmHg (80-100); ARTERIAL BLOOD GAS pH 7.41 (7.35-7.45)
--- NOTE | 2021-10-03 18:00 | NUR ---
SEDATION VACATION PERFORMED THIS MORNING PATIENT HAD ALL SEDATION STOPPED AND WAS BRIEFLY EXTUBATED. WHILE PATIENT WAS OFF SEDATION AND EXTUBATED THEY WERE ALERT AND FOLLOWING COMMANDS.
--- NOTE | 2021-10-03 19:15 | NUR ---
Received report from COLT Pacheco. Patient resting quietly in bed. She remains on ventilator, tolerating well. Receiving versed and fentanyl drips, see IV drip titrations. Vitals within normal limits. She opens eyes to speech and follows verbal commands.
--- NOTE | 2021-10-03 21:30 | NUR ---
Tube feeds restarted at this time.
[2021-10-04] VITALS (1320 sets, daily range): BP systolic 115–170; BP diastolic 63–98; PULSE 60–78; TEMP 97.9–98.9; O2SAT 88–100
[2021-10-04 05:16] LABS: BASO % 0.2 % (0.0-2.0); GRAN # 11.3 K/mm3 (1.4-6.5); GRAN % 88.9 % (42.2-75.2); LYMPH % 7.9 % (20.0-51.0); MEAN CELL VOLUME 100 fl (80.0-100.0); MEAN CORPUSCULAR HGB CONC 34 g/dl (33.0-37.0); MEAN PLATELET VOLUME 11.3 fl (7.4-10.4); MONO # 0.2 K/mm3 (0.1-0.6); MONO % 1.7 % (1.7-9.3); PLATELET COUNT 305 K/mm3 (130-400); RED BLOOD COUNT 2.73 M/mm3 (4.10-5.30); REDCELL DISTRIBUTION WIDTH-CV 13.3 % (11.5-14.5)
[2021-10-04 05:25] LABS: HEMATOCRIT 27.3 % (37.0-47.0); HEMOGLOBIN 9.2 g/dl (12.5-16.0); MEAN CORPUSCULAR HEMOGLOBIN 34 pg (27-31)
[2021-10-04 05:28] LABS: ARTERIAL BLD GAS O2 SATURATION 96.3 % (92-100); ARTERIAL BLD GAS TCO2 CT 26.9; ARTERIAL BLOOD GAS BASE EXCESS 2.3 (-2-2); ARTERIAL BLOOD GAS HCO3 25.8 meq/L (22-26); ARTERIAL BLOOD GAS PCO2 36.2 mmHg (35-45); ARTERIAL BLOOD GAS PO2 81.8 mmHg (80-100); ARTERIAL BLOOD GAS pH 7.47 (7.35-7.45)
--- NOTE | 2021-10-04 05:30 | NUR ---
Patient becomes restless with minimal stimulation. SBPs 150-160s. Has required increased FiO2 throughout shift to maintain sats above 90%. No sedation vacation performed at this time.
[2021-10-04 05:44] LABS: CALCIUM 9.1 mg/dL (8.4-10.2); CREATININE, serum 0.65 mg/dL (0.57-1.11); PHOSPHOROUS 3.9 mg/dL (2.3-4.7)
--- NOTE | 2021-10-04 07:00 | NUR ---
Bedside report received from COLT Mckeon. Pt intubated and sedated. Tolerating ventilation well. Bilateral soft wrist restraints in place. No signs and symptoms of discomfort.
--- NOTE | 2021-10-04 07:37 | NUR ---
Report given to COLT Gutiérrez, and COLT De Oliveira.
--- NOTE | 2021-10-04 10:56 | NUR ---
Remelt Pan Tank Operator attended clinical rounds with the team. Clinical Nursing Director advised they may attempt extubation tomorrow. Patient remains intubated at this time.
--- NOTE | 2021-10-04 17:27 | NUR ---
NOT NECESSARY AT THIS TIME PER DR RIBEIRO
--- NOTE | 2021-10-04 19:10 | NUR ---
Received report from COLT Gutiérrez. Patient remains on ventilator, tolerating well. She continues to receive fentanyl and versed drips, see IV drip titrations. Patient hypertensive with SBPs 160-170s at times. All other vitals within normal limits. She arouses to speech but does not follow verbal commands.
[2021-10-05] VITALS (1380 sets, daily range): BP systolic 105–177; BP diastolic 74–102; PULSE 60–100; TEMP 97.5–99.2; O2SAT 87–100
[2021-10-05 05:31] LABS: MEAN CELL VOLUME 102 fl (80.0-100.0); MEAN CORPUSCULAR HGB CONC 33 g/dl (33.0-37.0); MEAN PLATELET VOLUME 11.7 fl (7.4-10.4); PLATELET COUNT 372 K/mm3 (130-400); RED BLOOD COUNT 2.69 M/mm3 (4.10-5.30); REDCELL DISTRIBUTION WIDTH-CV 13.6 % (11.5-14.5)
[2021-10-05 05:42] LABS: HEMATOCRIT 27.5 % (37.0-47.0); MEAN CORPUSCULAR HEMOGLOBIN 33 pg (27-31)
[2021-10-05 05:49] LABS: ALBUMIN 2.2 gm/dL (3.4-4.8); CREATININE, serum 0.62 mg/dL (0.57-1.11); MAGNESIUM 1.7 mg/dL (1.6-2.6); PHOSPHOROUS 2.7 mg/dL (2.3-4.7); POTASSIUM 4.2 mmol/L (3.5-4.5)
--- NOTE | 2021-10-05 09:40 | NUR ---
Sedation stopped and patient on CPAP trial. Occasionally becomes restless and pulls at restraints. Nurse at bedside encouraging patient to relax and focus on her breathing. Patient settled down with encouragement from this nurse and also patient's significant other who was also at bedside. This nurse left the room for approximately [address] Ulloa when vent alarm sounded. Dr. Ulloa and this nurse re-entered room and observed that patient had self-extubated herself. Placed on oxymask and was initially going to place on precedex for anxiety per Dr. Ulloa. However after less than 5 mintutes of being extubated patient was very agitated in bed with a HR in the 150. Dr. Ulloa made the determination to re-intubate at this time. Intubation initiated at 0945 and finished at 0950. Patient vomited up tube feed during intubation and oral cavity was vigorously suctioned. Apart from this incident intubation was tolerated well. Will continue to monitor.
--- NOTE | 2021-10-05 10:00 | NUR ---
Received verbal order to re-start sedation at previous level of 5mg of Versed and 100 mcg/hr of Fentanyl.
--- NOTE | 2021-10-05 17:00 | NUR ---
Sedation vacation not performed at this time. Patient's sedation was stopped this morning for a CPAP trial and patient self-extubated. Patient will also become intermittenlty agitated and pull at restraints and reach up towards her ET tube while on sedation.
--- NOTE | 2021-10-05 19:00 | NUR ---
Received report from COLT Wilson.
[2021-10-06] VITALS (1194 sets, daily range): BP systolic 137–188; BP diastolic 80–109; PULSE 64–100; TEMP 96.7–99; O2SAT 82–100
--- NOTE | 2021-10-06 05:45 | NUR ---
Attempted sedation vacation by titrating down versed and fentanyl drips. Patient quickly became restless and agitated, biting at ET tube. Sedation resumed.
[2021-10-06 06:16] LABS: MEAN CELL VOLUME 104 fl (80.0-100.0); MEAN CORPUSCULAR HGB CONC 32 g/dl (33.0-37.0); PLATELET COUNT 389 K/mm3 (130-400); RED BLOOD COUNT 2.86 M/mm3 (4.10-5.30)
[2021-10-06 06:22] LABS: HEMATOCRIT 29.8 % (37.0-47.0); HEMOGLOBIN 9.5 g/dl (12.5-16.0); MEAN CORPUSCULAR HEMOGLOBIN 33 pg (27-31)
[2021-10-06 06:51] LABS: CALCIUM 9.2 mg/dL (8.4-10.2); CREATININE, serum 0.64 mg/dL (0.57-1.11); POTASSIUM 4.1 mmol/L (3.5-4.5)
[2021-10-06 07:03] LABS: BAND 1 % (0-10); LYMPHOCYTE 9 % (20.0-51.0); NEUTROPHILS 86 % (42.0-75.2); PLATELET ESTIMATE NORMAL (NORMAL)
--- NOTE | 2021-10-06 09:11 | NUR ---
PATIENT NOT MEETING REQUIREMENTS TO WEAN OFF OF VENT
[2021-10-06 10:54] LABS: ARTERIAL BLD GAS O2 SATURATION 89.4 % (92-100); ARTERIAL BLOOD GAS BASE EXCESS 0.7 (-2-2); ARTERIAL BLOOD GAS HCO3 24.8 meq/L (22-26); ARTERIAL BLOOD GAS PCO2 38.1 mmHg (35-45); ARTERIAL BLOOD GAS PO2 60.1 mmHg (80-100); ARTERIAL BLOOD GAS pH 7.43 (7.35-7.45)
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
--- NOTE | 2021-10-06 13:24 | NUR ---
Pharmacist In Charge receives message that patient daughter Marimar is requesting to speak. Pharmacist In Charge attempted phone contact to daughter Marimar and left VM requesting call back. Pharmacist In Charge continues to follow patient case.
--- NOTE | 2021-10-06 14:48 | NUR ---
13:24: Wrestling Coach received telephone contact from patient daughter Marimar, who states she is "Confused about the who, what, where?" and she is seeking confirmation of patient current DPOA-HC. She reports patient had historically nominated her as DPOA-HC. This Wrestling Coach reviewed patient medical record noting the most recent DPOA-HC on file is dated 2020 appointing patient partner Arnold as DPOA. Daughter is updated. Daughter expresses gratitude, and she has no further questions or concerns at this time. Change Control Manager continues to follow.
--- NOTE | 2021-10-06 17:45 | NUR ---
Pt restless and slightly agitated. Precedex increased per protocol and documented.
--- NOTE | 2021-10-06 21:38 | NUR ---
BEDSIDE SHIFT REPORT RECEIVED FROM COLT DUMONT. PT CURRENTLY SEDATED IN BED. VENT SETTINGS ACCORDING TO REPORT. ALL LINES RUNNING ACCORDING TO REPORT (SEE DRIP FLOW SHEET). ANAYA DRAINING APPROPRIATELY. VSS. NO ACUTE CHANGES NOTED AT THIS TIME
[2021-10-07] VITALS (642 sets, daily range): BP systolic 79–168; BP diastolic 53–113; PULSE 60–86; TEMP 32.7–36.4; O2SAT 88–100
--- NOTE | 2021-10-07 04:13 | NUR ---
PT RESTING IN BED AT THIS TIME. PT APPEARS TO BECOME AGGITATED WITH ORAL CARE. PT CLENCHING JAW WITH ANY MOVEMENT OF ET TUBE OR ORAL CARE BEING PROVIDED. DIFFICULTY PULLING ORAL SPONGE OUT OF MOUTH. NO REMINANTS OF SPONGE WERE MISSING FROM SPONGE OR SEEN WITHIN MOUTH. DURING ORAL CARE BLOOD AND MUCOUS VISUALIZED ON ORAL CARE SPONGE. RN NOTIFIED. ET TUBE STRAP/ORTIZ SECURE. AIRWAY AND VENTILATOR TUBING ARE OUT OF REACH OF PATIENTS HANDS. VENT WHEELS LOCKED. RAILS UP. RESTRAINTS ARE ON AND SECURE.
[2021-10-07 05:33] LABS: ARTERIAL BLD GAS O2 SATURATION 93.7 % (92-100); ARTERIAL BLD GAS TCO2 CT 27.6; ARTERIAL BLOOD GAS BASE EXCESS 2.5 (-2-2); ARTERIAL BLOOD GAS HCO3 26.5 meq/L (22-26); ARTERIAL BLOOD GAS PCO2 38.5 mmHg (35-45); ARTERIAL BLOOD GAS PO2 71.1 mmHg (80-100); ARTERIAL BLOOD GAS pH 7.46 (7.35-7.45)
[2021-10-07 05:39] LABS: BASO % 0.1 % (0.0-2.0); EOS % 0.1 % (0.0-4.0); GRAN # 8.9 K/mm3 (1.4-6.5); GRAN % 79.3 % (42.2-75.2); HEMOGLOBIN 10.6 g/dl (12.5-16.0); LYMPH # 1.3 K/mm3 (1.2-3.4); LYMPH % 11.4 % (20.0-51.0); MEAN CELL VOLUME 103 fl (80.0-100.0); MEAN CORPUSCULAR HEMOGLOBIN 34 pg (27-31); MEAN CORPUSCULAR HGB CONC 33 g/dl (33.0-37.0); MEAN PLATELET VOLUME 11.3 fl (7.4-10.4); MONO # 0.9 K/mm3 (0.1-0.6); MONO % 7.9 % (1.7-9.3); PLATELET COUNT 396 K/mm3 (130-400); RED BLOOD COUNT 3.14 M/mm3 (4.10-5.30); REDCELL DISTRIBUTION WIDTH-CV 13.8 % (11.5-14.5)
[2021-10-07 05:53] LABS: HEMATOCRIT 32.3 % (37.0-47.0)
--- NOTE | 2021-10-07 05:53 | NUR ---
PATIENT ON VENT. RAILS UP. RESTRAINTS ARE SECURE. ABG PERFORMED. NO SIGNS OF DISTRESS. PT SLIGHTLY WOKE UP AND BECAME AGGITATED.
[2021-10-07 05:57] LABS: CALCIUM 9.1 mg/dL (8.4-10.2); CREATININE, serum 0.63 mg/dL (0.57-1.11); MAGNESIUM 1.6 mg/dL (1.6-2.6); POTASSIUM 3.5 mmol/L (3.5-4.5)
--- NOTE | 2021-10-07 17:00 | NUR ---
FOR PT SEDATION VACTION, PTS SEDATION TITRATED DOWN. WILL CONTINUE TO TITRATE DOWN UNTIL DESIRED EFFECT IS REACHED.
--- NOTE | 2021-10-07 19:08 | NUR ---
PT RESTING IN BED AT THIS TIME. RESTRAINTS SECURE. VENT WHEELS LOCKED. PT HAD BEARHUGGER ON AT THIS TIME. RAILS UP X4. NO CHANGES MADE AT THIS TIME. PT AGGITATED WITH ORAL CARE AND WHEN MOVING ET TUBE.
--- NOTE | 2021-10-07 19:16 | NUR ---
PT ASSESSMENT COMPLETED THIS MORNING AT 0800. PT WAS MODERATELY SEDATED. TUBE FEED RESIDUALS WERE HIGH, TUBE FEEDS STOPPED AT 1100. RESTARTED FEEDS AT 1500. BEAR HUGGER PLACED FOR LOW BODY TEMP.
--- NOTE | 2021-10-07 21:06 | NUR ---
BEDSIDE SHIFT REPORT RECEIVED FROM COLT DOMINGUEZ. PT CURRENTLY RESTING IN BED. ALL LINES RUNNING ACCORDING TO REPORT (SEE DRIP FLOW SHEET). PT CURRENTLY VENTED/SEDATED. VENT ACCORDING TO REPORT. ANAYA DRAINING APPROPRIATELY.
--- NOTE | 2021-10-07 21:57 | NUR ---
PT RESTING IN BED AT THIS TIME. PT WAS ABLE TO OPEN EYES. PT STILL WEARING HEATING BLANKET. RESTRAINTS SECURE. HOB ELEVATED. VENT WHEELS LOCKED WATER RESEVOIR MOSTLY FULL. PERFORMED ORAL CARE AND SXNED ETT. RAILS UP X4. ET TUBE STRAP SECURE. NO CHANGES AT THIS TIME. WILL CONTINUE TO MONITOR
[2021-10-08] VITALS (924 sets, daily range): BP systolic 90–171; BP diastolic 53–92; PULSE 60–104; TEMP 35.9–38; O2SAT 86–100
--- NOTE | 2021-10-08 00:03 | NUR ---
PT RESTING COMFORTABLY IN BED. ALL CONNECTS CHECKED AND SECURE. BVM AT HEAD OF BED ON FLOW METER. SUCTION SECURED. RESTRAINTS SECURE. RAILS X4 UP. ALL VENT TUBING AND SUCTION TUBING ARE OUT OF REACH OF PATIENT.
[2021-10-08 05:08] LABS: ARTERIAL BLD GAS O2 SATURATION 92.7 % (92-100); ARTERIAL BLD GAS TCO2 CT 24.6; ARTERIAL BLOOD GAS BASE EXCESS 0.6 (-2-2); ARTERIAL BLOOD GAS HCO3 23.6 meq/L (22-26); ARTERIAL BLOOD GAS PCO2 32.3 mmHg (35-45); ARTERIAL BLOOD GAS PO2 64.4 mmHg (80-100); ARTERIAL BLOOD GAS pH 7.48 (7.35-7.45)
[2021-10-08 05:26] LABS: BASO % 0.1 % (0.0-2.0); EOS # 0.2 K/mm3 (0.0-0.7); GRAN # 12.8 K/mm3 (1.4-6.5); GRAN % 78.2 % (42.2-75.2); HEMOGLOBIN 10.5 g/dl (12.5-16.0); LYMPH # 2.1 K/mm3 (1.2-3.4); LYMPH % 12.7 % (20.0-51.0); MEAN CELL VOLUME 101 fl (80.0-100.0); MEAN CORPUSCULAR HEMOGLOBIN 33 pg (27-31); MEAN CORPUSCULAR HGB CONC 33 g/dl (33.0-37.0); MEAN PLATELET VOLUME 11.2 fl (7.4-10.4); MONO # 1.1 K/mm3 (0.1-0.6); MONO % 6.7 % (1.7-9.3); PLATELET COUNT 452 K/mm3 (130-400); RED BLOOD COUNT 3.18 M/mm3 (4.10-5.30); REDCELL DISTRIBUTION WIDTH-CV 13.9 % (11.5-14.5)
[2021-10-08 05:28] LABS: HEMATOCRIT 32.1 % (37.0-47.0)
[2021-10-08 05:43] LABS: CREATININE, serum 0.89 mg/dL (0.57-1.11); MAGNESIUM 1.6 mg/dL (1.6-2.6); POTASSIUM 3.9 mmol/L (3.5-4.5)
--- NOTE | 2021-10-08 05:44 | NUR ---
Performed weaning assessment. Placed patient on PS 5 P5. PT TOLERATED WELL FOR APPROX 15 MINUTES. AROUND THIS TIME, PATIENTS VT DROPPED SLIGHTLY BETWEEN 250-320. PT IS SLIGHTLY AWAKE. SHE IS ALERT. ABLE TO HAVE CONVERSATION WITH PT. FOLLOWS COMMANDS OF SQUEEZING HAND FOR YES WHEN ASKING PT QUESTIONS. ASKED PT MULTIPLE QUESTIONS AND SHE WAS ABLE TO SQUEEZE HAND STATING THAT SHE UNDERSTOOD THE "BREATHING TEST" I WAS PERFORMING AND THAT SHE NEEDED TO FOCUS ON BREATHING. VT DROPPING AT THE 15MIN VINAY CORRELATE WITH PT BEGINNING TO DOZE OFF. RSBI UNDER 105. NO INDICATION FOR SUCTION AT THIS TIME. PER READINGS TAKEN WHILE ON BIPAP PATIENTS COMPREHENSION AND GAG REFLEX THIS SOLE DYER SUGGEST THAT PT BE EXTUBATED TO BIPAP. IT IS MY UNDERSTANDING SHE WAS EXTUBATED PREVIOUSLY WITHOUT ANY SORT OF SUPPORT VIA NIV. THIS RT BELIEVES IF PT WERE TO BE EXTUBATED TO BIPAP SHE WOULD HAVE A SMOOTHER TRANSITION AND LOWER CHANCES OF REINTUBATION. ALSO RECOMMEND THIS TO REDUCE THE RISK OF VENTILATOR-ASSOCIATED PNEUMONIA AND DECREASE MORTALITY. WHILE ON WEANING PARAMETERS NO SIGNS OF VENTILATORY DISTRESS NOTED. ALL OTHER READINGS INCLUDING RR, HR, SAT, BP. THIS NOTE AND FINDINGS WERE GIVEN IN REPORT TO THE DAY SHIFT RESPIRATORY THERAPISTS.
--- NOTE | 2021-10-08 09:00 | NUR ---
PT ASSESSMENT COMPLETE. BLOOD PRESSURE WAS LOW. HELD BP MEDICATIONS. POTASSIUM WAS 3.9. POTASSIUM REPLACEMENT INITIATED.
--- NOTE | 2021-10-08 17:00 | NUR ---
ATTEMPTED TO COME OFF SEDATION IN THE MORNING. PTS AGITATION INCREASED THROUGHOUT THE DAY.
[2021-10-09] VITALS (1148 sets, daily range): BP systolic 91–142; BP diastolic 50–87; PULSE 60–89; TEMP 96.6–99.9; O2SAT 86–100
[2021-10-09 04:38] LABS: ARTERIAL BLD GAS O2 SATURATION 92.9 % (92-100); ARTERIAL BLD GAS TCO2 CT 24.3; ARTERIAL BLOOD GAS BASE EXCESS -0.3 (-2-2); ARTERIAL BLOOD GAS HCO3 23.3 meq/L (22-26); ARTERIAL BLOOD GAS PO2 65.4 mmHg (80-100); ARTERIAL BLOOD GAS pH 7.45 (7.35-7.45)
[2021-10-09 05:28] LABS: BASO % 0.2 % (0.0-2.0); EOS # 0.3 K/mm3 (0.0-0.7); EOS % 1.6 % (0.0-4.0); GRAN # 12.6 K/mm3 (1.4-6.5); GRAN % 75.9 % (42.2-75.2); LYMPH # 2.5 K/mm3 (1.2-3.4); LYMPH % 15.3 % (20.0-51.0); MEAN CELL VOLUME 102 fl (80.0-100.0); MEAN CORPUSCULAR HGB CONC 33 g/dl (33.0-37.0); MEAN PLATELET VOLUME 11.3 fl (7.4-10.4); PLATELET COUNT 376 K/mm3 (130-400); RED BLOOD COUNT 2.76 M/mm3 (4.10-5.30); REDCELL DISTRIBUTION WIDTH-CV 14.2 % (11.5-14.5)
[2021-10-09 05:46] LABS: ALBUMIN 2.4 gm/dL (3.4-4.8); BILIRUBIN,TOTAL 0.3 mg/dL (0.2-1.2); CALCIUM 8.8 mg/dL (8.4-10.2); CREATININE, serum 0.78 mg/dL (0.57-1.11); MAGNESIUM 1.4 mg/dL (1.6-2.6); POTASSIUM 3.7 mmol/L (3.5-4.5); TOTAL PROTEIN 5.7 gm/dL (6.2-8.1)
[2021-10-09 05:47] LABS: HEMATOCRIT 28.2 % (37.0-47.0); HEMOGLOBIN 9.4 g/dl (12.5-16.0); MEAN CORPUSCULAR HEMOGLOBIN 34 pg (27-31)
--- NOTE | 2021-10-09 05:51 | NUR ---
PATIENT HAS BEEN AWAKE AND COOPERATIVE/ NO EYE CONTACT/ FOLLOW SOME INSTRUCTIONS COMPLACENT
--- NOTE | 2021-10-09 07:46 | NUR ---
0700 bedside shift report given. patient is intubated and sedated. aguilar, central line, and og tubes confirmed and in place. patient positioned on left side. patient appears to be comfortable. awaiting trach and peg placement today.
--- NOTE | 2021-10-09 14:22 | NUR ---
Hillary RN notifies this [employer] Staff Officer that patient DPOA-HC/Life Partner Arnold has left the hospital for a brief time but did have a question for social work about the hospital patient is being referred for transfer. [employer] Staff Officer contacted Arnold ), and Arnold inquired about whether there are any discounted places for him to stay while patient is transferred to [facility] in . He states he is aware of [facility]. He is more familiar with driving around the [facility]. This [employer] Staff Officer confirms [facility] is for families of children, and he states "That's what I thought." When the address of the facility is confirmed, he states "Oh, I should have no problem there," and he plans to contact [facility] to inquire about places he may be able to stay within that area for 1-2 days upon patient transfer there. Arnold verbalizes understanding that patient is referred, but not yet accepted for placement. He states he is aware that the trach and peg placement will be tomorrow, "So the transfer would be pushed back a little." He expresses gratitude for information shared, including contact information for [facility], and he states no further questions or concerns at this time. [employer] Staff Officer contacted German at [facility] to confirm receipt of referral. German to review and contact in the morning to discuss; he notes with patient payor source, he will not need an authorization. [employer] Staff Officer remains available as needed. *Discharge plan: [facility]*
--- NOTE | 2021-10-09 19:27 | NUR ---
PATIENT RESTING COMFORTABLY. NO DISTRESS NOTED. NO VOICED CONCERNS. RAILS UP X4, RESTRAINTS SECURE. VENTILATOR AND SUCTION TUBING OUT OF REACH FROM PT. HOB ELEVATION INCREASED TO 30 DEGREES. WATER RESEVOIR MOSTLY FULL. NO CHANGES MADE. WILL CONTINUE TO MONITOR
[2021-10-10] VITALS (1170 sets, daily range): BP systolic 96–147; BP diastolic 56–81; PULSE 81–108; TEMP 37–37.6; O2SAT 68–100
--- NOTE | 2021-10-10 00:16 | NUR ---
PT RESTING IN BED AT THIS TIME NO DISTRESS NO VOICED CONCERNS. HOB ELEVATED. AMBU BAG ON FLOW METER AT HEAD OF BED. VENT WHEELS LOCKED. RESTRAINTS SECURE. RAILS X4 UP. NO CHANGES AT THIS TIME. WILL CONTINUE TO MONITOR
--- NOTE | 2021-10-10 03:28 | NUR ---
PT TOLERATING WELL. NO DISTRESS NOTED. NO CONCERNS. NO COMPLICATIONS. RAILS ARE UP. RESTRAINTS ARE SECURE. AMBUBAG AT HEAD OF BED ON FLOW METER. VENT WHEELS LOCKED.
[2021-10-10 04:37] LABS: ARTERIAL BLD GAS O2 SATURATION 93.3 % (92-100); ARTERIAL BLD GAS TCO2 CT 25.9; ARTERIAL BLOOD GAS BASE EXCESS 0.5 (-2-2); ARTERIAL BLOOD GAS HCO3 24.7 meq/L (22-26); ARTERIAL BLOOD GAS PCO2 38.4 mmHg (35-45); ARTERIAL BLOOD GAS PO2 63.3 mmHg (80-100); ARTERIAL BLOOD GAS pH 7.43 (7.35-7.45)
--- NOTE | 2021-10-10 05:41 | NUR ---
PATIENT IS CURRENTLY CALM AND ALERT, WILL NOT FOLLOW COMMANDS, AGITATES EASILY, CALMES SELF THUS FAR
[2021-10-10 05:48] LABS: BASO % 0.1 % (0.0-2.0); EOS # 0.4 K/mm3 (0.0-0.7); EOS % 1.8 % (0.0-4.0); GRAN # 17.5 K/mm3 (1.4-6.5); GRAN % 82.4 % (42.2-75.2); LYMPH % 9.3 % (20.0-51.0); MEAN CELL VOLUME 103 fl (80.0-100.0); MEAN CORPUSCULAR HGB CONC 33 g/dl (33.0-37.0); MEAN PLATELET VOLUME 11.8 fl (7.4-10.4); MONO # 1.2 K/mm3 (0.1-0.6); MONO % 5.7 % (1.7-9.3); PLATELET COUNT 356 K/mm3 (130-400); RED BLOOD COUNT 2.92 M/mm3 (4.10-5.30); REDCELL DISTRIBUTION WIDTH-CV 13.8 % (11.5-14.5)
[2021-10-10 06:01] LABS: CALCIUM 9.1 mg/dL (8.4-10.2); CREATININE, serum 0.72 mg/dL (0.57-1.11); POTASSIUM 4.1 mmol/L (3.5-4.5)
[2021-10-10 06:10] LABS: HEMATOCRIT 30.2 % (37.0-47.0); HEMOGLOBIN 9.8 g/dl (12.5-16.0); MEAN CORPUSCULAR HEMOGLOBIN 34 pg (27-31)
--- NOTE | 2021-10-10 07:47 | NUR ---
PT had a large liquid BM this morning. Completed bed change and bed bath given.
[2021-10-10 11:55] LABS: ARTERIAL BLD GAS O2 SATURATION 96.1 % (92-100); ARTERIAL BLD GAS TCO2 CT 25.7; ARTERIAL BLOOD GAS BASE EXCESS 0.6 (-2-2); ARTERIAL BLOOD GAS HCO3 24.6 meq/L (22-26); ARTERIAL BLOOD GAS PCO2 37.1 mmHg (35-45); ARTERIAL BLOOD GAS PO2 85.6 mmHg (80-100); ARTERIAL BLOOD GAS pH 7.44 (7.35-7.45)
--- NOTE | 2021-10-10 13:12 | NUR ---
forming process worker notified German with [facility] that patient will have surgery today at 5:00pm. forming process worker will fax surgery notes to German on 10/11 in am. Worker requested that German make contact with patient's significant other to offer lodging accommodations in [place].
[2021-10-10 16:12] LABS: CLOSTRIDIUM DIFF A/B NEG; CLOSTRIDIUM DIFF A/B INTERP NonToxigenic C.diff
--- NOTE | 2021-10-10 17:09 | NUR ---
PT WAS VERY AGITATED WHILE DOING DAILY CARE RESULTING IN A NEED FOR INCREASE IN SEDATION.
--- NOTE | 2021-10-10 17:38 | NUR ---
PT LEFT ICU FOR OR AT 1728.
--- NOTE | 2021-10-10 19:38 | NUR ---
DR ALBRECHT SURGEON GIVES VERBAL ORDER TO ADMINISTER MEDS ONLY AT THIS TIME IN PEG TUBE ROUTE FOR THIS PATIENT
--- NOTE | 2021-10-10 20:51 | NUR ---
PT TRACH SECURE WITH TRACH TIES. PT HAS A 6.0 SHILEY CUFFED. SHE IS RESTING IN BED COMFORTABLY. RAILS UP X4. RESTRAINTS SECURE. NO SIGNS OF DISTRESS. NO VOICED CONCERNS FROM NURSING OR PT. NO FAMILY IN ROOM AT THIS TIME.WILL CONTINUE TO MONITOR. AMBUBAG AT HEAD OF BED ON FLOW METER. WATER RESEVOIR FULL.
--- NOTE | 2021-10-10 22:26 | NUR ---
PT RETURNED FROM TRACH PROCEDURE. PT SET UP ON VENT. SUCTION CATH VERIFIED TRACH COMPATIBLE. WATER RESEVOIR FULL. AMBU BAG AT HEAD OF BED ON FLOW METER. RAILS UP X4. DOCTOR STATED VENTILATOR SETTING WERE OKAY TO KEEP SAME.
--- NOTE | 2021-10-10 22:38 | NUR ---
TRACH SECURE WITH SUTURES AND TRACH TIES. AMBUBAG AT HEAD OF BED WITH FLOW METER. NO DITRESS NOTED. RN NOTIFIED OF O2 CHANGE. NO OTHER CHANGES WILL CONTINUE TO MONITOR
[2021-10-11] VITALS (924 sets, daily range): BP systolic 81–165; BP diastolic 47–100; PULSE 80–102; TEMP 98–99.2; O2SAT 91–100
--- NOTE | 2021-10-11 01:10 | NUR ---
RT X2 PERFORMED TRACH CARE ON PT. SITE IS BLOODY WITH CLOTS. TRACH TIES CHANGED PRIOR ONES WERE SATURATED WITH BLOOD AND FLUID. NO DISTRESS S/P CLEANING. NO VOICED CONCERNS. PT IS RESTING IN BED RAILS UP X4. RESTRAINTS ARE SECURE. HOB SLIGHTLY ELEVATED.
[2021-10-11 05:10] LABS: BASO % 0.2 % (0.0-2.0); EOS # 0.3 K/mm3 (0.0-0.7); EOS % 1.4 % (0.0-4.0); HEMATOCRIT 27.1 % (37.0-47.0); LYMPH # 1.4 K/mm3 (1.2-3.4); LYMPH % 6.9 % (20.0-51.0); MEAN CELL VOLUME 101 fl (80.0-100.0); MEAN CORPUSCULAR HEMOGLOBIN 34 pg (27-31); MEAN CORPUSCULAR HGB CONC 33 g/dl (33.0-37.0); MONO % 4.9 % (1.7-9.3); PLATELET COUNT 295 K/mm3 (130-400); RED BLOOD COUNT 2.68 M/mm3 (4.10-5.30); REDCELL DISTRIBUTION WIDTH-CV 13.9 % (11.5-14.5)
[2021-10-11 05:18] LABS: ARTERIAL BLD GAS O2 SATURATION 91.5 % (92-100); ARTERIAL BLD GAS TCO2 CT 27.9; ARTERIAL BLOOD GAS BASE EXCESS 2.3 (-2-2); ARTERIAL BLOOD GAS HCO3 26.7 meq/L (22-26); ARTERIAL BLOOD GAS PCO2 40.5 mmHg (35-45); ARTERIAL BLOOD GAS PO2 59.6 mmHg (80-100); ARTERIAL BLOOD GAS pH 7.44 (7.35-7.45)
[2021-10-11 05:33] LABS: CALCIUM 9.2 mg/dL (8.4-10.2); CREATININE, serum 0.65 mg/dL (0.57-1.11); MAGNESIUM 1.4 mg/dL (1.6-2.6); POTASSIUM 4.5 mmol/L (3.5-4.5)
--- NOTE | 2021-10-11 06:57 | NUR ---
MISSED 3AM CHECK DUE TO EMERGENCY INTUBATION IN ANOTHER ROOM IN ICU. KEPT MONITOR OF PT, BUT WAS UNABLE TO OBTAIN VENTILATORY VALUES.
--- NOTE | 2021-10-11 07:03 | NUR ---
OCCUPIED WITH COMBATIVE PT NEXT DOOR. UNABLE TO OBTAIN VENTILATORY VALUES AT THIS TIME.
--- NOTE | 2021-10-11 07:30 | NUR ---
Assisted with mercedes-care and repositioning. Patient becomes easily agitated with minimal stimulation. Pulls at restraints and attempts to sit up in bed. Patient also becomes very "stiff" and physically resists when staff attempts to reposition and provide oral and mercedes-care. Staff attempts to re-orient patient at these times. Eyes will open spontaneously but not following verbal commands. Will continue to monitor.
--- NOTE | 2021-10-11 07:44 | NUR ---
AFTER 30 MINUTE OBSERVATION PATIENT HAS RENMAINED QUIET AND TOLERANT OF VENTILATOR
--- NOTE | 2021-10-11 11:21 | NUR ---
Ok to re-start lovenox and aspirin per Dr. Estrada.
--- NOTE | 2021-10-11 12:56 | NUR ---
Host/Hostess Ground faxed clinical updates to German at [facility]. DAWSON also faxed requested DPOA-HC and notified German that patient's life partner, Arnold is DPOA-HC with patient's daughter, Marimar listed as alternate. German advised that he likely will not be able to accept today as they may not have the staffing to take patient with new trach/peg due to nursing ratios. German advised it is more likley they will be able to accept tomorrow. DAWSON updated BOAT MASTER.
--- NOTE | 2021-10-11 17:58 | NUR ---
Sedation vacation not performed at this time. Patient opens eyes spontaneously and pulls at restraints and attempts to sit up on current sedation levels with minimal physical stimuli.
[2021-10-12] VITALS (914 sets, daily range): BP systolic 92–137; BP diastolic 28–89; PULSE 64–146; TEMP 98–99; O2SAT 50–100
[2021-10-12 04:23] LABS: ARTERIAL BLD GAS TCO2 CT 25.1; ARTERIAL BLOOD GAS BASE EXCESS -0.7 (-2-2); ARTERIAL BLOOD GAS HCO3 23.9 meq/L (22-26); ARTERIAL BLOOD GAS PCO2 39.4 mmHg (35-45)
[2021-10-12 04:24] LABS: ARTERIAL BLOOD GAS PO2 139.6 mmHg (80-100)
[2021-10-12 05:11] LABS: MEAN CORPUSCULAR HGB CONC 31 g/dl (33.0-37.0); MEAN PLATELET VOLUME 11.5 fl (7.4-10.4); PLATELET COUNT 286 K/mm3 (130-400); RED BLOOD COUNT 2.36 M/mm3 (4.10-5.30)
[2021-10-12 05:13] LABS: HEMOGLOBIN 7.8 g/dl (12.5-16.0); MEAN CELL VOLUME 106 fl (80.0-100.0); MEAN CORPUSCULAR HEMOGLOBIN 33 pg (27-31)
[2021-10-12 05:29] LABS: BAND 1 % (0-10); CREATININE, serum 0.68 mg/dL (0.57-1.11); EOSINOPHIL 6 % (0-4); LYMPHOCYTE 15 % (20.0-51.0); MAGNESIUM 1.6 mg/dL (1.6-2.6); METAMYELOCYTE 1 % (0-0); NEUTROPHILS 69 % (42.0-75.2); POTASSIUM 3.6 mmol/L (3.5-4.5)
[2021-10-12 05:31] LABS: HYPOCHROMIA 2+; PLATELET ESTIMATE NORMAL (NORMAL)
--- NOTE | 2021-10-12 07:45 | NUR ---
WEANED PEEP TO 8 AT THIS TIME
--- NOTE | 2021-10-12 08:15 | NUR ---
Opens eyes and moves extremities with physical stimuli, however does not follow any verbal commands. Assisted with oral care and mercedes-care; Will continue to monitor.
--- NOTE | 2021-10-12 11:35 | NUR ---
Manager Of Administration collaborated with German Clinical Liason at [facility] who advised he cannot accept patient today due to patient's drips and nursing ratios, however could possibly accept tomorrow. German advised he spoke with the patient's partner, Arnold and answered his questions about lodging.
[2021-10-12 15:03] LABS: HEMATOCRIT 23.6 % (37.0-47.0); HEMOGLOBIN 7.7 g/dl (12.5-16.0)
--- NOTE | 2021-10-12 17:00 | NUR ---
Sedation vacation not performed; patient on minimal sedation and grimaces and becomes restless in bed with minimal stimulation.
--- NOTE | 2021-10-12 18:10 | NUR ---
Increased bleeding noted around trach site and observed in the peck. Blood also noted with suctioning ET tube. Dr. Page notified. Suggested that the cuff may need more air which might be causing blood to leak into the trach. RT notified.
--- NOTE | 2021-10-12 18:30 | NUR ---
02 decreasing to low 90's on 30%. Patient has been stable in mid to upper 90's on 30% for several hours prior to this. ET tube suctioned and small amount of bloody sputum removed. NILAY Marcum notified. Will obtain a chest xray. 02 increased to 40%. RT notified.
--- NOTE | 2021-10-12 20:00 | NUR ---
CALL TO RT PT VENTILATOR ALARMING FREQUENTLY THAT LOW MANDATORY VOLUME, PT NOT GETTING FULL VOLUMES SET BY VENTILATOR. ALSO NOTED PT'S BREATHING PATTERN DIFFERENT THAN WHAT THIS RN ASSESSED DURING PREVIOUS NIGHT'S SHIFT. ALSO, LEFT SIDE LUNG SOUNDS VERY DIMINISHED COMPARED TO LOUD COURSE BREATH SOUNDS IN RIGHT. ALSO CALLED TO MARIEL GONZALEZ APRN WHO STATES THAT CHEST X-RAY WAS DONE THIS EVENING AT 1830 DUE TO SIMILAR CONCERNS. THIS RN IN ROOM WITH RT TRYING TO TROUBLE SHOOT VENT ISSUES AT THIS TIME. WILL CONTINUE TO FOLLOW. PULSE OXIMETRY PER MONITOR REMAINS GREATER THAN 96%.
--- NOTE | 2021-10-12 22:30 | NUR ---
NOTE COVERING TIME FROM 2014 THROUGH 2229. RT SALONI IN PT'S ROOM IN RESPONSE TO RN CALL ABOUT FREQUENT ALARM OF LOW TIDAL VOLUME. PT BREATHING PATTERN IRREGULAR, DIMINISHED BREATH SOUNDS IN LEFT SIDE, AND VENTILATOR SET VOLUME NOT BEING DELIVERED ADEQUATELY WITH INSPIRATION. RT REPLACED FULL VENT CIRCUT, SUCTIONED AND LAVAGED PT, REPLACED INNER CANULA OF TRACH, AND REPLACED ENTIRE VENTILATOR IN ATTEMPTS TO FIND CAUSE OF ISSUE. DURING THIS TIME, MARIEL GONZALEZ APRN ALSO AWARE AND AT BEDSIDE AND DISCUSSING WITH E-ICU OVER VIDEO MONITOR IN ROOM. NEW CHEST X-RAY AND KUB TAKEN, WITH PROVIDERS SEEING NO OBVIOUS CAUSE OF LOW VOLUMES BEING DELIVERED. THROUGHOUT THIS TIME, PT SHOWING NO SIGNS OF RESPONSIVENESS, DESPITE LOW AMOUNTS OF SEDATIONS (VERSED AT 2MG/HR AND FENTANYL 75MCG/HR). CALLS TO BOTH DR. MATHEW WITH E-ICU AND DR. MILIAN, ENT TO COME ASSESS TRACH FOR POSSIBLE ISSUE WITH TRACHEOSTOMY, PT HAS CONTINUED TO HAVE BLEEDING FROM SITE SINCE PLACEMENT, WELL BLEEDING IN ET SUCTION. CALL ALSO OUT TO DR. RIBEIRO. RT WAS ADVISED TO BAG PT TO SEE IF BETTER RESULTS VERSUS VENTILATOR. RT REPORTS FEELING RESISTANCE WITH BAGGING, IF PT IS HOLDING BREATH. EVENTUALLY LONG EXPIRATION WOULD HAPPEN, AND WOULD BE ABLE TO FULLY VENTILATE. EQUAL CHEST RISE SEEN WITH FULLY VENTILATION. ABOUT THIS TIME, AT 2129, PT CONVERTED TO V-TACH ON THE MONITOR AT 146. THIS RN IN ROOM IMMEDIATELY STARTED COMPRESSIONS, ADDITIONAL RN BROUGHT CRASH CART TO ROOM, AND CODE CALLED OVER HEAD. ER DOCTOR AND NURSES IN ROOM TO CONTINUE CODE FROM THIS POINT. WHEN PADS PLACED AND RATE ANALYZED, PT NO LONGER IN SHOCKABLE RHYTHM. CODE CONTINUED WITH COMPRESSIONS, EPINEPHRINE (7x), AMIODARONE (2x), SODIUM BICARB (2x), MAGNISIUM, ALSO BESIDE SCOPE OF TRACH AND AIRWAY BY DR. MILIAN, REPEAT CHEST X-RAY TO R/O PNEUMOTHORAX. ULTIMATELY, PT'S S/O, SULY, REQUESTED THE CODE BE STOPPED AT 2210. FROM THIS TIME RN AND RT PREPARED PT'S BODY FOR ADDITIONAL FAMILY TO ARRIVE. PHARMACEUTICAL OPERATOR NOTIFYING [facility] AND WILL CALL FOR HOME LIGHT BULB ASSEMBLER. BY 2229, PT'S DAUGHTER AND ADDITIONAL FAMILY IN ROOM, ALSO COMMUNICATING WITH DR. RIBEIRO.
--- NOTE | 2021-10-12 23:09 | NUR ---
[facility] notified of patient TOD, 10-12-2021 at 2211. Not a candidate for tissue. Will await call from [facility] for eye donantion. #[phone]
--- NOTE | 2021-10-12 23:53 | NUR ---
Contacted by [facility]. Patient is potential candidate for eye donation.
--- NOTE | 2021-10-13 03:56 | NUR ---
ASSOCIATE FROM [facility] IN ROOM AT THIS TIME TO ASSESS PT AND HARVEST CORNEAS.
--- NOTE | 2021-10-13 05:57 | NUR ---
Approximately 2000 called to patients room for tidal volumes random large then small. Trouble shooted lavaged and suctioned with mild to mod. amount of thin blood secretions. Then changed peck, inner cannula, vent circuit, then changed out entire vent. with no change in breathing pattern. CXR repeated. Bagged with increased difficulty for several breaths then normal breath with good tidal volumes. Requested physician at bedside ER physician came, Pulmonolgy Dr. Ulloa, and ENT came to bedside. Code started, bronchoscopy done during and repeat 3rd CXR.
== END 2021-10-12 22:11 | disposition expired | DRG 4 ==
LOC: COL.ER 13:45 → MEDICAL 15:35 → ICU 15:35 → MEDICAL 15:35 → ICU 09-25 20:54 → MEDICAL 09-25 20:54 → ICU 09-25 20:54
PROVIDERS: Internal Medicine; Internal Medicine Pulmonary Disease; Nurse Practitioner; Nurse Practitioner Family; Otolaryngology; Psychiatry & Neurology Neurology; Student in an Organized Health Care Education/Training Program; ADMIT Internal Medicine
PROC: 5A1955Z Respiratory Ventilation, Greater than 96 Consecutive Hours (ICD-10-PCS; principal; 2021-09-26)
PROC: 0BH17EZ Insertion of Endotracheal Airway into Trachea, Via Natural or Artificial Opening (ICD-10-PCS; 2021-09-26)
PROC: 0DH63UZ Insertion of Feeding Device into Stomach, Percutaneous Approach (ICD-10-PCS; 2021-10-10)
PROC: 0B110F4 Bypass Trachea to Cutaneous with Tracheostomy Device, Open Approach (ICD-10-PCS; 2021-10-10 17:30)
PROC: 5A12012 Performance of Cardiac Output, Single, Manual (ICD-10-PCS; 2021-10-12)
DX: G93.40 Encephalopathy, unspecified (principal); J96.01 Acute respiratory failure with hypoxia; J15.0 Pneumonia due to Klebsiella pneumoniae; I50.21 Acute systolic (congestive) heart failure; I48.20 Chronic atrial fibrillation, unspecified; N17.9 Acute kidney failure, unspecified; F10.131 Alcohol abuse with withdrawal delirium; I47.2 Ventricular tachycardia; Z95.0 Presence of cardiac pacemaker; G47.33 Obstructive sleep apnea (adult) (pediatric); Z91.19 Patient's noncompliance with other medical treatment and regimen; Z85.3 Personal history of malignant neoplasm of breast; Z72.0 Tobacco use; F10.10 Alcohol abuse, uncomplicated; K21.9 Gastro-esophageal reflux disease without esophagitis; E87.6 Hypokalemia; E83.42 Hypomagnesemia; J44.9 Chronic obstructive pulmonary disease, unspecified; I65.29 Occlusion and stenosis of unspecified carotid artery; I11.0 Hypertensive heart disease with heart failure
CPT/HCPCS: OP; 99233-AI; A4314; A7521; C1751; C1892; C9113; G0378; J0330; J0360; J0696; J1644; J1650; J1940; J2060; J2250; J2543; J2704; J2920; J3010; J3370; J3475; J3480; J7030; J7040; J7050; J7060; J7120; Q9967